=== PATIENT | female | born 1930 | race Caucasian/White ===

== ENCOUNTER → 2018-09-06 | Outpatient (CLI) | payer MEDICARE, BC ==
[2018-09-06 12:36] LABS: Anisocytosis Slight; Basophils % (A) 1 %; Eosinophils # (A) 0.1 k/uL (0-0.7); Eosinophils % (A) 2 %; HCT 34.4 % (34.0-46.0); HGB 10.6 gm/dL (11.4-16.0); Hypochromasia Moderate; Lymphocytes # (A) 1.1 k/uL (1.0-4.8); Lymphocytes % (A) 38 %; MCH 29.7 pg (25.0-35.0); MCHC 30.8 g/dL (31.0-37.0); MCV 96.5 fL (80.0-100.0); Mean Platelet Volume 8.6; Monocytes # (A) 0.2 k/uL (0-1.0); Monocytes % (A) 6 %; Neutrophils # (A) 1.5 k/uL (1.3-7.7); Neutrophils % (A) 51 %; Platelet Count 159 k/uL (150-450); RBC 3.56 m/uL (3.80-5.40); RDW 16.4 % (11.5-15.5)
[2018-09-06 13:07] LABS: Appearance,Urine Clear (Clear); Bilirubin,Urine Negative (Negative); Blood,Urine Negative (Negative); Color,Urine Yellow; Glucose,Urine (UA) Negative (Negative); Ketones,Urine Negative (Negative); Leukocyte Esterase,Urine Trace (Negative); Nitrite,Urine Negative (Negative); PH, Urine 8.5 (5.0-8.0); Protein,Urine Trace (Negative); RBC,Urine 1 /hpf (0-5); Specific Gravity,Urine 1.017 (1.001-1.035); Squamous Epithelial Cell,Urine 2 /hpf (0-4); Urobilinogen,Urine <2.0 mg/dL (<2.0); WBC,Urine 3 /hpf (0-5)
[2018-09-06 16:41] LABS: Albumin 3.8 g/dL (3.80-4.90); Albumin/Globulin Ratio 1.81 (1.60-3.17); Anion Gap 5.2 mmol/L (4.00-12.00); Calcium 8.3 mg/dL (8.7-10.3); Carbon Dioxide 31.8 mmol/L (21.6-31.8); Globulin 2.1 g/dL (1.6-3.3); Potassium 5.3 mmol/L (3.5-5.5); Total Bilirubin 0.4 mg/dL (0.2-1.2); Total Protein 5.9 g/dL (6.2-8.2)
== END | disposition home or self-care (01) ==
LOC: LABWHC1 10:49
PROVIDERS: ATTEND Family Medicine
DX: R60.9 Edema, unspecified (principal); R30.0 Dysuria
CPT/HCPCS: 36415; 80053; 81001; 83880; 85025

== ENCOUNTER → 2020-01-11 | Outpatient (CLI) | payer MEDICARE, BC ==
[2020-01-11 10:12] LABS: Anisocytosis Moderate; Basophils % (A) 1 %; Eosinophils # (A) 0.1 k/uL (0-0.7); Eosinophils % (A) 4 %; HCT 33.3 % (34.0-46.0); HGB 10.7 gm/dL (11.4-16.0); Hypochromasia Slight; Lymphocytes % (A) 36 %; MCH 31.7 pg (25.0-35.0); MCHC 32.2 g/dL (31.0-37.0); MCV 98.5 fL (80.0-100.0); Macrocytosis Moderate; Mean Platelet Volume 9.3; Monocytes # (A) 0.2 k/uL (0-1.0); Monocytes % (A) 5 %; Neutrophils # (A) 1.4 k/uL (1.3-7.7); Neutrophils % (A) 52 %; Platelet Count 191 k/uL (150-450); RBC 3.38 m/uL (3.80-5.40); RDW 21.8 % (11.5-15.5); WBC 2.7 k/uL (3.8-10.6)
[2020-01-11 17:36] LABS: Hemoglobin A1C 6.2 % (4.0-6.0)
[2020-01-11 18:21] LABS: African American GFR (CKD) 52.3 (60.0-200.0); Albumin/Globulin Ratio 1.9 (1.60-3.17); Anion Gap 7.9 mmol/L (4.00-12.00); BUN/Creat Ratio 34.55 Ratio (12.00-20.00); Calcium 8.9 mg/dL (8.7-10.3); Carbon Dioxide 31.1 mmol/L (21.6-31.8); Chol/HDL Ratio 2.5; Globulin 2.1 g/dL (1.6-3.3); LDL Cholesterol,Calculated 58.2 mg/dL (0.0-131.0); Non-African American GFR(CKD) 45.1 (60.0-200.0); Potassium 3.9 mmol/L (3.5-5.5); Total Bilirubin 0.5 mg/dL (0.2-1.2); Total Protein 6.1 g/dL (6.2-8.2); VLDL Calculation 16.8 mg/dL (5.00-40.00)
== END | disposition home or self-care (01) ==
LOC: LABWHC1 09:07
PROVIDERS: ATTEND Internal Medicine
DX: E78.2 Mixed hyperlipidemia (principal); I10 Essential (primary) hypertension; R73.03 Prediabetes
CPT/HCPCS: 36415; 80053; 80061; 83036; 84443; 85025

== ENCOUNTER 2020-05-29 11:48 | Inpatient (IN) | payer MEDICARE, BC ==
[2020-05-29] MEDS ORDERED: PANTOPRAZOLE 40 MG/10 ML VIAL IVP STA (12:16)
--- NOTE | 2020-05-29 12:19 | ED ---
General Adult HPI - General Chief complaint: GI Bleed Stated complaint: Rectal Bleed Time Seen by Provider: 05/29/20 11:50 Source: patient, RN notes reviewed, old records reviewed Mode of arrival: wheelchair Limitations: no limitations - History of Present Illness Initial comments: 89 yo female presenting for evaluation of rectal bleeding. Patient has had intermittent bright red rectal bleeding for the past several weeks. She is on Pradaxa. She was seen by her primary care physician this morning and sent to the emergency department for evaluation. She is having increased fatigue and dyspnea. She had 2 episodes of bleeding yesterday with 1normal bowel movement in between. She only has blood with bowel movements, no melena reported. No fever or chills. No cough. No chest pain. - Related Data Home Medications Medication Instructions Recorded Confirmed Amiodarone [Cordarone] 100 mg PO DAILY 12/08/13 01/11/15 Aspirin 81 mg PO DAILY 12/08/13 01/11/15 Calcium Carb-Vit D 500Mg-200Un 1 tab PO DAILY 12/08/13 01/11/15 [Oscal 500+D] Cyanocobalamin [Vitamin B-12] 500 mcg PO DAILY 12/08/13 01/11/15 Dabigatran [Pradaxa] 150 mg PO BID 12/08/13 01/11/15 Gabapentin [Neurontin] 300 mg PO TID 12/08/13 01/11/15 Metoprolol Tartrate [Lopressor] 12.5 mg PO DAILY 12/08/13 01/11/15 Multivitamins, Thera [Multivitamin] 1 each PO DAILY 12/08/13 01/11/15 Olmesartan/Amlodipin/Hcthiazid 1 each PO DAILY 12/08/13 01/11/15 [Tribenzor 40-5-12.5 mg Tablet] Omeprazole [PriLOSEC] 20 mg PO AC-BRKFST 12/08/13 01/11/15 Simvastatin [Zocor] 20 mg PO HS 12/08/13 01/11/15 Hydrocodone/Acetaminophen [[place] 2.5 mg PO Q4HR PRN 01/08/14 01/11/15 5-325] Previous Rx's Medication Instructions Recorded Levofloxacin [Levaquin] 750 mg PO DAILY #7 tab 01/11/15 Allergies Allergy/AdvReac Type Severity Reaction Status Date / Time adhesive AdvReac Rash/Hives Verified 01/11/15 15:55 Review of Systems ROS Statement: Those systems with pertinent positive or pertinent negative responses have been documented in the HPI. ROS Other: All systems not noted in ROS Statement are negative. Past Medical History Past Medical History: Atrial Fibrillation, Hyperlipidemia, Hypertension Additional Past Medical History / Comment(s): November PT HAD CARDIOVERSION. NO LONGER IN A-FIB CURRENTLY. ON PRadaxa. History of Any Multi-Drug Resistant Organisms: None Reported Past Surgical History: Breast Surgery, Hysterectomy, Orthopedic Surgery Past Psychological History: No Psychological Hx Reported Smoking Status: Never smoker Past Alcohol Use History: None Reported Past Drug Use History: None Reported General Exam Limitations: no limitations General appearance: alert, in no apparent distress Head exam: Present: atraumatic, normocephalic Eye exam: Present: normal appearance, PERRL ENT exam: Present: normal exam Neck exam: Present: normal inspection. Absent: tenderness, meningismus Respiratory exam: Present: normal lung sounds bilaterally. Absent: respiratory distress, wheezes Cardiovascular Exam: Present: regular rate, irregular rhythm GI/Abdominal exam: Present: soft. Absent: distended, tenderness, guarding, rebound Rectal exam: Present: normal inspection, hemorrhoids (no active bleeding). Absent: black stool, bloody stool Extremities exam: Present: normal inspection, normal capillary refill. Absent: pedal edema Neurological exam: Present: alert, oriented X3, CN II-XII intact. Absent: motor sensory deficit Psychiatric exam: Present: normal affect, normal mood Skin exam: Present: warm, pallor Course Vital Signs 05/29/20 11:56 Temperature 97.6 F Pulse Rate 67 Respiratory 18 Rate Blood Pressure 138/63 O2 Sat by Pulse 97 Oximetry EKG Findings - EKG Comments: EKG Findings:: EKG was atrial fibrillation low voltage, rate is 69, QRS duration 82, QTC 456, no ST segment elevation Medical Decision Making - Medical Decision Making 89-year-old female with 2 weeks of intermittentbright red rectal bleeding. Patient is on Pradaxa with history of atrial fibrillation. Hemodynamically stable at time of presentation, no active bleeding on rectal exam. Hemoglobin is 7, she had a recent on May 08.8. She is transfused one unit of packed RBCs on the emergency department. I discussed case both with Dr. Myles, Dr. Anaya covering for GI, and the admitting physician Dr. Cramer. Pradentonind has been ordered. Patient will be admitted to the ICU. - Lab Data Result diagrams: 05/29/20 12:22 05/29/20 12:22 Lab Results 05/29/20 05/29/20 05/29/20 Range/Units 12:22 12:22 12:22 WBC 3.3 L (3.8-10.6) k/uL RBC 2.02 L (3.80-5.40) m/uL Hgb 7.0 L D (11.4-16.0) gm/dL Hct 22.6 L (34.0-46.0) % MCV 112.1 H (80.0-100.0) fL MCH 34.5 (25.0-35.0) pg MCHC 30.8 L (31.0-37.0) g/dL RDW 15.5 (11.5-15.5) % Plt Count 243 (150-450) k/uL Neutrophils % 49 % Lymphocytes % 41 % Monocytes % 5 % Eosinophils % 2 % Basophils % 1 % Neutrophils # 1.6 (1.3-7.7) k/uL Lymphocytes # 1.4 (1.0-4.8) k/uL Monocytes # 0.2 (0-1.0) k/uL Eosinophils # 0.1 (0-0.7) k/uL Basophils # 0.0 (0-0.2) k/uL Dimorphic RBCs Present Hypochromasia Moderate Poikilocytosis (manual Present Anisocytosis (manual) Present Macrocytosis Marked A PT 10.3 (9.0-12.0) sec INR 1.0 (<1.2) APTT 23.2 (22.0-30.0) sec Sodium 140 (137-145) mmol/L Potassium 4.7 (3.5-5.1) mmol/L Chloride 111 H (98-107) mmol/L Carbon Dioxide 21 L (22-30) mmol/L Anion Gap 8 mmol/L BUN 16 (7-17) mg/dL Creatinine 0.86 (0.52-1.04) mg/dL Est GFR (CKD-EPI)AfAm 70 (>60 ml/min/1.73 sqM) Est GFR (CKD-EPI)NonAf 61 (>60 ml/min/1.73 sqM) Glucose 122 H (74-99) mg/dL Plasma Lactic Acid Lauro (0.7-2.0) mmol/L Calcium 8.8 (8.4-10.2) mg/dL Magnesium 2.0 (1.6-2.3) mg/dL Total Bilirubin 0.5 (0.2-1.3) mg/dL AST 23 (14-36) U/L ALT 17 (4-34) U/L Alkaline Phosphatase 52 (38-126) U/L Ammonia (<30) umol/L Total Protein 6.5 (6.3-8.2) g/dL Albumin 3.8 (3.5-5.0) g/dL Blood Type Blood Type Recheck Bld Type Recheck Status Antibody Screen Crossmatch Spec Expiration Date 05/29/20 05/29/20 Range/Units 12:22 12:27 WBC (3.8-10.6) k/uL RBC (3.80-5.40) m/uL Hgb (11.4-16.0) gm/dL Hct (34.0-46.0) % MCV (80.0-100.0) fL MCH (25.0-35.0) pg MCHC (31.0-37.0) g/dL RDW (11.5-15.5) % Plt Count (150-450) k/uL Neutrophils % % Lymphocytes % % Monocytes % % Eosinophils % % Basophils % % Neutrophils # (1.3-7.7) k/uL Lymphocytes # (1.0-4.8) k/uL Monocytes # (0-1.0) k/uL Eosinophils # (0-0.7) k/uL Basophils # (0-0.2) k/uL Dimorphic RBCs Hypochromasia Poikilocytosis (manual Anisocytosis (manual) Macrocytosis PT (9.0-12.0) sec INR (<1.2) APTT (22.0-30.0) sec Sodium (137-145) mmol/L Potassium (3.5-5.1) mmol/L Chloride (98-107) mmol/L Carbon Dioxide (22-30) mmol/L Anion Gap mmol/L BUN (7-17) mg/dL Creatinine (0.52-1.04) mg/dL Est GFR (CKD-EPI)AfAm (>60 ml/min/1.73 sqM) Est GFR (CKD-EPI)NonAf (>60 ml/min/1.73 sqM) Glucose (74-99) mg/dL Plasma Lactic Acid Lauro 1.9 (0.7-2.0) mmol/L Calcium (8.4-10.2) mg/dL Magnesium (1.6-2.3) mg/dL Total Bilirubin (0.2-1.3) mg/dL AST (14-36) U/L ALT (4-34) U/L Alkaline Phosphatase (38-126) U/L Ammonia <9 (<30) umol/L Total Protein (6.3-8.2) g/dL Albumin (3.5-5.0) g/dL Blood Type A Positive Blood Type Recheck No Previous Record Bld Type Recheck Status CABO Indicated Antibody Screen NEGATIVE Crossmatch See Detail Spec Expiration Date 06/01/2020 - 2321 Critical Care Time Critical Care Time: Yes Total Critical Care Time: 35 Disposition Clinical Impression: Hematochezia Disposition: ADMITTED IP TO THIS [facility] Condition: Serious Is patient prescribed a controlled substance at d/c from ED?: No Referrals: Cristina Cramer MD [Primary Care Provider] - 1-2 days Decision to Admit Reason: Admit from EC Decision Date: 05/29/20 Decision Time: 13:37
[2020-05-29 12:56] LABS: Lactic Acid, Venous 1.9 mmol/L (0.7-2.0)
[2020-05-29 12:57] LABS: Albumin 3.8 g/dL (3.5-5.0); Calcium 8.8 mg/dL (8.4-10.2); Potassium 4.7 mmol/L (3.5-5.1); Total Bilirubin 0.5 mg/dL (0.2-1.3); Total Protein 6.5 g/dL (6.3-8.2)
[2020-05-29 12:59] LABS: Partial Thromboplastin Time 23.2 sec (22.0-30.0); Prothrombin Time 10.3 sec (9.0-12.0)
[2020-05-29 13:03] LABS: Basophils % (A) 1 %; Eosinophils # (A) 0.1 k/uL (0-0.7); Eosinophils % (A) 2 %; HCT 22.6 % (34.0-46.0); Hypochromasia Moderate; Lymphocytes # (A) 1.4 k/uL (1.0-4.8); Lymphocytes % (A) 41 %; MCH 34.5 pg (25.0-35.0); MCHC 30.8 g/dL (31.0-37.0); MCV 112.1 fL (80.0-100.0); Macrocytosis Marked; Mean Platelet Volume 9.4; Monocytes # (A) 0.2 k/uL (0-1.0); Monocytes % (A) 5 %; Neutrophils # (A) 1.6 k/uL (1.3-7.7); Neutrophils % (A) 49 %; Platelet Count 243 k/uL (150-450); RBC 2.02 m/uL (3.80-5.40); RDW 15.5 % (11.5-15.5); WBC 3.3 k/uL (3.8-10.6)
[2020-05-29 13:22] LABS: Anisocytosis (M) Present; Poikilocytosis (M) Present
[2020-05-29 13:23] LABS: Mixed Population RBC Present
[2020-05-29] MEDS ORDERED: NALOXONE 0.4 MG/ML 1 ML VIAL IV PRN (13:34)
[2020-05-29] MEDS: IDARUCIZUMAB 2.5 GM in EMPTY BAG 1 BAG IV SCH ×2 (13:55→14:14)
[2020-05-29] MEDS: SODIUM CHLORIDE 0.9% 1,000 ML IV SCH (15:00)
[2020-05-29 15:25] LABS: Glucose,Whole Blood 100 mg/dL (75-99)
[2020-05-29] MEDS ORDERED: HYDROcodone/APAP 7.5-325MG 1 EACH TAB PO SCH (16:00)
--- NOTE | 2020-05-29 16:17 | CONS ---
CONSULTATION DATE OF DICTATION: 05/29/2020 REASON FOR CONSULTATION: Acute GI bleed. HISTORY OF PRESENT ILLNESS: The patient is an 89-year-old pleasant white female with history of atrial fibrillation, on Pradaxa, who went to see Dr. Cramer on an outpatient basis today. She was not feeling well, having some dizziness and has been having ongoing GI bleed for the last 2 weeks' duration. The patient states that initially it was almost dark in color. Subsequently it became somewhat tarry, and then she started having some maroon- colored stools. She has had this bleeding on and off for the last 2 weeks. Each day she had bowel movements anywhere from one to two a day, and there were days when she did not have any bleeding. The symptoms continued to progressively get worse and today she was sent to the emergency room by Dr. Cramer. Her hemoglobin was noted to be at 7.2 g/dL. She denies any abdominal pain, reports no nausea, vomiting. She has been taking Motrin 1 or 2 tablets daily for the last few months for degenerative joint disease. No prior history of peptic ulcer disease. She recalls her last colonoscopy was more than 5 or 6 years ago. PAST MEDICAL HISTORY: Her past medical history is significant for atrial fibrillation, hypertension, hyperlipidemia, degenerative joint disease. PAST SURGICAL HISTORY: Breast surgery, hysterectomy. HOME MEDICATIONS: Medications at home include Cordarone, aspirin, calcium supplements, vitamin B12, Pradaxa, Neurontin, Lopressor, multivitamin, Tribenzor, Prilosec, Zocor and [place]. ALLERGIES: ADHESIVE TAPE. SOCIAL HISTORY: No smoking. No alcohol use. FAMILY HISTORY: Unremarkable. REVIEW OF SYSTEMS: CARDIOPULMONARY: No chest pain or shortness of breath. GENITOURINARY: No dysuria or hematuria. MUSCULOSKELETAL: Some chronic back pain. NEUROLOGY: Unremarkable. PSYCHIATRY: Unremarkable. ENT/VISION: Unremarkable. HEMATOLOGY: Anemia. ENDOCRINE: Unremarkable. CONSTITUTIONAL: No recent weight loss. No fever, chills, night sweats. PHYSICAL EXAMINATION: She appears comfortable. No apparent distress. Vital signs are stable. Blood pressure is 148/70, pulse rate 73, temperature 98.4. HEENT examination unremarkable. Conjunctivae pink. Sclerae anicteric. Oral cavity no lesions. NECK: No JVD or lymph node enlargement. CHEST: Clear to auscultation. HEART: Regular rate and rhythm. ABDOMEN: Soft. It was non-tender, non-distended. Bowel sounds are positive. No organomegaly. EXTREMITIES: No pedal edema. SKIN: No rashes. NEUROLOGIC: Alert and oriented x3. No focal deficits. LABS: WBC 3.3, hemoglobin 7, platelets 243. MCV is 112. PT and INR within normal limits. BUN and creatinine are normal at 60 and 0.8, respectively. ALT, AST, T-bilirubin, alkaline phosphatase are normal. IMPRESSION: 1. Severe symptomatic anemia and gastrointestinal bleed for the last 2 weeks' duration. Hemoglobin is 7 g/dL. Patient having some dark-colored stools followed by black tarry stools followed by maroon-colored stools for the last 2 weeks' duration. Her hemoglobin 3 weeks ago was 11 g/dL. Patient has been taking Motrin on and off for degenerative joint disease. At this time, possibility of an upper GI source of bleeding versus colonic source of bleeding needs to be considered. The patient has been on Pradaxa for atrial fibrillation, and her last dose was yesterday. Currently not having any active bleeding since being in the ER since morning. Remains hemodynamically stable. 2. History of atrial fibrillation, on Pradaxa, currently on hold. 3. History of hypertension. 4. History of hypothyroidism. RECOMMENDATIONS: 1. Agree with reversal of anticoagulation. 2. Continue to hold Pradaxa. 3. Start her on a clear liquid diet. 4. Protonix 40 mg twice daily. 5. Will proceed with an upper endoscopy tomorrow, and if negative consider colonoscopy during this hospitalization. The plan was discussed with the patient. She is agreeable to it. In the meantime, we will monitor CBC on a frequent basis. Patient currently receiving one unit of PRBC transfusion. Will follow with you closely. Thank you for this consultation. MMODL / IJN: [id number] /
--- NOTE | 2020-05-29 16:32 | P.CNPUL ---
History of Present Illness Consult date: 05/29/20 Chief complaint: GIB History of present illness: This is an 89-year-old here patient presented to the ED with generalized fatigue and weakness. The patient has chronic atrial fibrillation and the patient has been taken further access on long-term anticoagulants. The patient started having some bright red blood per rectum she days back on and off. She has not had any previous colonoscopy and she's been trying to delay the procedures much as possible. Note that she became quite fatigued and tired and lethargic and she came into the hospital and her hemoglobin was at 7.0. Based on her intake of pradaxa, she was reversed with idarucizumab and she was admitted to the intensive care unit and she is currently receiving the first unit of packed RBC and she is also on a normal saline at the rate of 75 mL an hour. She is making adequate urine output. His is hemodynamically stable. The patient does not have any chronic liver disease. Does not take any form of nonsteroidal anti- inflammatory medications. No alcoholism. No peptic ulcer disease. No hematemesis. No epigastric pain. coagulation profile is within normal limits. Review of Systems Constitutional: Reports fatigue, Reports lethargy Eyes: denies as per HPI, denies blurred vision, denies bulging eye, denies decreased vision, denies diplopia, denies discharge, denies dry eye, denies irritation, denies itching, denies pain, denies photophobia, denies loss of peripheral vision, denies loss of vision, denies tunnel vision/blind spots Ears: bilateral: decreased hearing, deny: ear discharge, earache, tinnitus Ears, nose, mouth and throat: Reports as per HPI Breasts: absent: as per HPI, change in shape, gynecomastia, masses, nipple discharge, pain, skin changes, swelling Cardiovascular: Reports decreased exercise tolerance Respiratory: Reports dyspnea Gastrointestinal: Reports BRBPR Genitourinary: Reports as per HPI Menstruation: Reports as per HPI Musculoskeletal: Reports as per HPI Musculoskeletal: absent: ankle pain, ankle stiffness, ankle swelling, as per HPI, elbow pain, elbow stiffness, elbow swelling, foot pain, foot stiffness, foot swelling, hand pain, hand stiffness, hand swelling, hip pain, hip stiffness, hip swelling, knee pain, knee stiffness, knee swelling, shoulder pain, shoulder stiffness, shoulder swelling, wrist pain, wrist stiffness, wrist swelling Integumentary: Reports as per HPI Neurological: Reports as per HPI Psychiatric: Reports as per HPI Endocrine: Reports as per HPI Hematologic/Lymphatic: Reports as per HPI Allergic/Immunologic: Reports as per HPI Past Medical History Past Medical History: Atrial Fibrillation, Hyperlipidemia, Hypertension Additional Past Medical History / Comment(s): Chronic afib, ( Pradaxa). hypothyroid, gout, hyperlipidemia and DM2 History of Any Multi-Drug Resistant Organisms: None Reported Past Surgical History: Breast Surgery, Hysterectomy, Orthopedic Surgery Past Psychological History: No Psychological Hx Reported Smoking Status: Never smoker Past Alcohol Use History: None Reported Past Drug Use History: None Reported Medications and Allergies Home Medications Medication Instructions Recorded Confirmed Type Metoprolol Tartrate [Lopressor] 25 mg PO DAILY 12/08/13 05/29/20 History Allopurinol [Zyloprim] 100 mg PO DAILY 05/29/20 05/29/20 History Dabigatran [Pradaxa] 150 mg PO BID 05/29/20 05/29/20 History HYDROcodone/APAP 7.5-325MG [[place] 1 tab PO TID PRN 05/29/20 05/29/20 History 7.5-325] Lansoprazole 30 mg PO DAILY 05/29/20 05/29/20 History Levothyroxine Sodium [Synthroid] 25 mcg PO DAILY 05/29/20 05/29/20 History Linaclotide [Linzess] 145 mcg PO DAILY 05/29/20 05/29/20 History Magnesium Oxide 400 mg PO DAILY 05/29/20 05/29/20 History Pantoprazole [Protonix] 40 mg PO DAILY 05/29/20 05/29/20 History Rosuvastatin [Crestor] 10 mg PO DAILY 05/29/20 05/29/20 History metFORMIN HCL [Glucophage] 500 mg PO BID 05/29/20 05/29/20 History Allergies Allergy/AdvReac Type Severity Reaction Status Date / Time adhesive AdvReac Rash/Hives Verified 05/29/20 13:46 Physical Exam Vitals: Vital Signs Temp Pulse Resp BP Pulse Ox 05/29/20 15:30 98.2 F 60 23 163/73 96 05/29/20 14:56 66 16 141/68 96 05/29/20 14:29 98.4 F 73 16 148/70 96 05/29/20 14:19 98.0 F 86 16 161/73 96 05/29/20 11:56 97.6 F 67 18 138/63 97 Intake and Output 05/29/20 05/29/20 05/29/20 06:59 14:59 22:59 Intake Total 0 Output Total 0 Balance 0 0 Intake: Blood Product 0 Rc As-1 Unit 0 [id number] Output: Urine 0 Other: Weight 92.079 kg The patient appeared well nourished and normally developed. Vital signs as documented. Head exam is unremarkable. No scleral icterus or corneal arcus noted. Neck is without jugular venous distension, thyromegaly, or carotid bruits. Carotid upstrokes are brisk bilaterally. Lungs are clear to auscultation and percussion. Cardiac exam reveals the PMI to be normally sized and situated. Rhythm is regular. First and second heart sounds normal. No murmurs, rubs or gallops. Abdominal exam reveals normal bowel sounds, no masses, no organomegaly and no aortic enlargement. Extremities are nonedematous and both femoral and pedal pulses are normal.Examination of the skin revealed no evidence of significant rashes, suspicious appearing nevi or other concerning lesions.Neurologically, the patient is awake and alert and the patient does not have any focal neurological deficit. Cranial nerves are essentially intact. Results - Laboratory Findings CBC and BMP: 05/29/20 12:22 05/29/20 12:22 PT/INR, D-dimer PT 10.3 sec (9.0-12.0) 05/29/20 12:22 INR 1.0 (<1.2) 05/29/20 12:22 Abnormal lab findings: Abnormal Labs 05/29/20 05/29/20 05/29/20 12:22 12:22 12:27 WBC 3.3 L RBC 2.02 L Hgb 7.0 L D Hct 22.6 L MCV 112.1 H MCHC 30.8 L Macrocytosis Marked A Chloride 111 H Carbon Dioxide 21 L Glucose 122 H POC Glucose (mg/dL) Crossmatch See Detail 05/29/20 15:23 WBC RBC Hgb Hct MCV MCHC Macrocytosis Chloride Carbon Dioxide Glucose POC Glucose (mg/dL) 100 H Crossmatch Assessment and Plan Plan: 1 acute GI bleed, likely of a lower GI source, consider possibility of a diverticular bleed. The patient was taken Pradaxa on outpatient basis which exacerbated her bleeding further. She presents to the ED with a hemoglobin of 7. She is hemodynamic is stable 2 blood loss anemia with hemoglobin of 7, currently on IV fluids and receiving packed RBC transfusion 3 chronic atrial fibrillation rate controlled on Pradaxa 4 hypertension 5 diabetes mellitus type 2 maintained on metformin 6 hypothyroidism 7 hyperlipidemia 8 osteoarthritis Plan give a total of 2 units of packed RBC IV fluids at the rate of 75 an hour The patient's Pradaxa was reversed with blaine Mcdaniel consultation for EGD and colonoscopy Keep nothing by mouth for now Hold anticoagulation IV Protonix compression devices to lower extremities We'll continue to follow
[2020-05-29] MEDS: PANTOPRAZOLE 40 MG/10 ML VIAL IVP SCH (21:13)
[2020-05-29] MEDS: HYDROcodone/APAP 7.5-325MG 1 EACH TAB PO PRN (21:31)
[2020-05-29 22:42] LABS: Anisocytosis Slight; Basophils % (A) 1 %; Eosinophils # (A) 0.1 k/uL (0-0.7); Eosinophils % (A) 2 %; HCT 24.5 % (34.0-46.0); HGB 7.8 gm/dL (11.4-16.0); Hypochromasia Moderate; Lymphocytes # (A) 0.9 k/uL (1.0-4.8); Lymphocytes % (A) 34 %; MCH 33.3 pg (25.0-35.0); MCHC 31.9 g/dL (31.0-37.0); Macrocytosis Marked; Mean Platelet Volume 9.4; Monocytes # (A) 0.2 k/uL (0-1.0); Monocytes % (A) 8 %; Neutrophils # (A) 1.5 k/uL (1.3-7.7); Neutrophils % (A) 53 %; Platelet Count 167 k/uL (150-450); Poikilocytosis Slight; RBC 2.35 m/uL (3.80-5.40); RDW 19.8 % (11.5-15.5); WBC 2.8 k/uL (3.8-10.6)
[2020-05-29 22:47] LABS: MCV 104.4 fL (80.0-100.0)
[2020-05-30] MEDS: SODIUM CHLORIDE 0.9% 1,000 ML IV SCH ×2 (05:11→17:04)
[2020-05-30] MEDS: HYDROcodone/APAP 7.5-325MG 1 EACH TAB PO PRN (06:24)
[2020-05-30] MEDS: LEVOTHYROXINE 25 MCG TAB PO SCH (06:25)
[2020-05-30 07:45] LABS: Anisocytosis Slight; HCT 24.1 % (34.0-46.0); HGB 7.7 gm/dL (11.4-16.0); Hypochromasia Moderate; MCH 33.4 pg (25.0-35.0); MCHC 31.9 g/dL (31.0-37.0); Macrocytosis Marked; Mean Platelet Volume 9.1; Platelet Count 159 k/uL (150-450); Poikilocytosis Slight; RDW 19.8 % (11.5-15.5); WBC 2.7 k/uL (3.8-10.6)
[2020-05-30 07:56] LABS: MCV 104.8 fL (80.0-100.0)
[2020-05-30 07:57] LABS: Calcium 7.8 mg/dL (8.4-10.2); Potassium 4.4 mmol/L (3.5-5.1)
[2020-05-30] MEDS: MAGNESIUM OXIDE 400 MG TAB PO SCH (08:58)
[2020-05-30] MEDS: ATORVASTATIN 20 MG TAB PO SCH (08:58)
[2020-05-30] MEDS: METOPROLOL TARTRATE 25 MG TAB PO SCH (08:58)
[2020-05-30] MEDS: PATIENT'S OWN (Linaclotide [Linzess] 145 MCG Capsule) PO SCH (08:58)
[2020-05-30] MEDS: allopurinoL 100 MG TAB PO SCH (08:58)
[2020-05-30] MEDS ORDERED: PANTOPRAZOLE 40 MG TABLET PO SCH (09:00)
[2020-05-30] MEDS: PANTOPRAZOLE 40 MG/10 ML VIAL IVP SCH ×2 (09:00→21:58)
[2020-05-30 12:07] LABS: Glucose,Whole Blood 97 mg/dL (75-99)
--- NOTE | 2020-05-30 13:44 | P.PN ---
Subjective Progress Note Date: 05/30/20 05/30/2020, the patient is doing well without any specific issues or complaints. Hemoglobin stable at 7.7. The patient did not show any further signs of GI bleed. The patient is having any nausea vomiting or abdominal pain. Feeling weak. Her cardiac rhythm is still in atrial fibrillation. The plan is to proceed with a EGD and possible colonoscopy today. No altered mentation. She is resting comfortably in bed. She is off anticoagulation for now. No angina. No palpitations. Objective - Vital Signs Vital signs: Vital Signs Temp 97.6 F 05/30/20 12:00 Pulse 58 L 05/30/20 13:00 Resp 22 05/30/20 13:00 BP 146/70 05/30/20 13:00 Pulse Ox 95 05/30/20 13:00 Intake & Output 05/29/20 05/30/20 05/30/20 18:59 06:59 18:59 Intake Total 535 1210 525 Output Total 0 456 602 Balance 535 754 -77 Weight 92.079 kg 95.7 kg Intake: IV 225 900 525 Sodium Chloride 0.9% 1, 225 900 525 000 ml @ 75 mls/hr IV . [id number] [facility] Rx#:[id number] Blood Product 310 310 Rc As-1 Unit 0 310 [id number] Rc As-1 Unit 310 [id number] Output: Urine 0 450 600 Stool 6 2 Other: Voiding Method Bedside Commode # Voids 1 1 0 - Exam The patient appeared well nourished and normally developed. Vital signs as documented. Head exam is unremarkable. No scleral icterus or corneal arcus noted . Neck is without jugular venous distension, thyromegaly, or carotid bruits. Carotid upstrokes are brisk bilaterally. Lungs are clear to auscultation and percussion. Cardiac exam reveals the PMI to be normally sized and situated. Rhythm is regular. First and second heart sounds normal. No murmurs, rubs or gallops. Abdominal exam reveals normal bowel sounds, no masses, no organomegaly and no aortic enlargement. Extremities are nonedematous and both femoral and pedal pulses are normal.Examination of the skin revealed no evidence of significant rashes, suspicious appearing nevi or other concerning lesions.Neurologically, the patient is awake and alert and the patient does not have any focal neurological deficit. Cranial nerves are essentially intact. - Labs CBC & Chem 7: 05/30/20 07:30 05/30/20 07:30 Labs: Abnormal Lab Results - Last 24 Hours (Table) 05/29/20 05/29/20 05/29/20 Range/Units 12:27 15:23 22:00 WBC 2.8 L (3.8-10.6) k/uL RBC 2.35 L (3.80-5.40) m/uL Hgb 7.8 L (11.4-16.0) gm/dL Hct 24.5 L (34.0-46.0) % MCV 104.4 H D (80.0-100.0) fL RDW 19.8 H (11.5-15.5) % Lymphocytes # 0.9 L (1.0-4.8) k/uL Macrocytosis Marked A Chloride (98-107) mmol/L Glucose (74-99) mg/dL POC Glucose (mg/dL) 100 H (75-99) mg/dL Calcium (8.4-10.2) mg/dL Crossmatch See Detail 05/30/20 05/30/20 Range/Units 07:30 07:30 WBC 2.7 L (3.8-10.6) k/uL RBC 2.30 L (3.80-5.40) m/uL Hgb 7.7 L (11.4-16.0) gm/dL Hct 24.1 L (34.0-46.0) % MCV 104.8 H (80.0-100.0) fL RDW 19.8 H (11.5-15.5) % Lymphocytes # (1.0-4.8) k/uL Macrocytosis Marked A Chloride 113 H (98-107) mmol/L Glucose 106 H (74-99) mg/dL POC Glucose (mg/dL) (75-99) mg/dL Calcium 7.8 L (8.4-10.2) mg/dL Crossmatch Assessment and Plan Plan: 1 acute GI bleed, likely of a lower GI source, consider possibility of a diverticular bleed. The patient was taken Pradaxa on outpatient basis which exacerbated her bleeding further. She presents to the ED with a hemoglobin of 7. She is hemodynamic is stable. The patient got transfused with a total of 2 units of packed RBC. Follow-up hemoglobin from today is at 7.7 and the patient not showing any signs of GI bleeding. 2 blood loss anemia 3 chronic atrial fibrillation, rate controlled and the patient was taken off anticoagulants for now. 4 hypertension 5 diabetes mellitus type 2 maintained on metformin 6 hypothyroidism 7 hyperlipidemia 8 osteoarthritis Plan A total of 2 units of packed RBC was given the patient's hemoglobin is at 7.7 IV fluids at the rate of 75 an hour The patient's Pradaxa was reversed with praxbind, and the patient is not showing any signs of GI bleeding GI consultation for EGD and colonoscopy Keep nothing by mouth for now IV Protonix compression devices to lower extremities We'll continue to follow
[2020-05-30] MEDS ORDERED: PROPOFOL 10 MG/ML 20 ML VIAL IV ONE (14:41)
[2020-05-30] MEDS ORDERED: LIDOCAINE 1% INJ 10MG/ML (20 ML MDV) ONE (14:41)
[2020-05-30] MEDS ORDERED: IV FLUID CONTINUATION 300 ML IV ONE (14:45)
--- NOTE | 2020-05-30 14:57 | P.PCN ---
Date of Procedure: 05/30/20 Procedure(s) Performed: BRIEF HISTORY: Patient is a 89-year-old, pleasant, white female admitted hospital with acute GI bleed. She is been having dark stools followed by maroon colored stools for the last 3 weeks' duration. She has A. fib and has been on Pradaxa which is currently on hold. Hemoglobin was 7 g/dL at the time of admission and received 2 units of PRBC transition. Last hemoglobin was 7.7 g/dL. She is scheduled for an upper endoscopy to rule out acute upper GI source of bleeding. PROCEDURE PERFORMED: Esophagogastroduodenoscopy. PREOPERATIVE DIAGNOSIS: Acute GI bleed. IV sedation per anesthesia. PROCEDURE: After informed consent was obtained, the patient was brought into the endoscopy unit. IV sedation was administered by Anesthesia under continuous monitoring. Initially the Olympus GIF-140 video endoscope was inserted into the mouth. Esophagus intubated without any difficulty. It was gradually advanced into the stomach and duodenum and carefully examined. The bulb and the second part of the duodenum appeared normal. The scope at this time was withdrawn to the stomach, adequately insufflated with air, and upon careful examination, mucosa of the antrum, body, cardia and the fundus appeared normal. The scope was then withdrawn into the esophagus. The GE junction was located at 39 cm from the incisors. The esophagus appeared normal. There were no erosions or ulcerations seen and the patient tolerated the procedure well. IMPRESSION: 1. No evidence of upper GI bleed. 2. Normal-appearing esophagus stomach and duodenum. RECOMMENDATIONS: The findings of this examination were discussed with the patient as well as her family. Monitor CBC daily. Will discuss with family regarding further workup including a colonoscopy .. In the meantime she'll be started on a clear liquid diet.
[2020-05-30] MEDS ORDERED: PEG 3350-NA SULF,BICARB,CL/KCL 4,000 ML BOTTLE PO ONE (15:19)
[2020-05-30 20:52] LABS: Anisocytosis Slight; Basophils % (A) 1 %; Eosinophils # (A) 0.1 k/uL (0-0.7); Eosinophils % (A) 3 %; HCT 25.6 % (34.0-46.0); HGB 8.3 gm/dL (11.4-16.0); Hypochromasia Moderate; Lymphocytes % (A) 29 %; MCH 33.9 pg (25.0-35.0); MCHC 32.5 g/dL (31.0-37.0); MCV 104.3 fL (80.0-100.0); Mean Platelet Volume 9.1; Monocytes # (A) 0.4 k/uL (0-1.0); Monocytes % (A) 11 %; Neutrophils # (A) 1.9 k/uL (1.3-7.7); Neutrophils % (A) 55 %; Platelet Count 186 k/uL (150-450); Poikilocytosis Slight; RBC 2.46 m/uL (3.80-5.40); RDW 19.6 % (11.5-15.5); WBC 3.4 k/uL (3.8-10.6)
[2020-05-30 20:54] LABS: Macrocytosis Marked
[2020-05-31 04:45] LABS: Anisocytosis Slight; HCT 23.3 % (34.0-46.0); HGB 7.4 gm/dL (11.4-16.0); Hypochromasia Moderate; MCH 33.1 pg (25.0-35.0); MCHC 31.6 g/dL (31.0-37.0); MCV 104.9 fL (80.0-100.0); Mean Platelet Volume 9.1; Platelet Count 170 k/uL (150-450); Poikilocytosis Slight; RBC 2.22 m/uL (3.80-5.40); RDW 19.2 % (11.5-15.5)
[2020-05-31 05:04] LABS: Macrocytosis Marked
[2020-05-31] MEDS: HYDROcodone/APAP 7.5-325MG 1 EACH TAB PO PRN ×2 (05:39→20:08)
[2020-05-31] MEDS: SODIUM CHLORIDE 0.9% 1,000 ML IV SCH ×2 (05:57→20:14)
[2020-05-31] MEDS: LEVOTHYROXINE 25 MCG TAB PO SCH (08:14)
[2020-05-31] MEDS ORDERED: FUROSEMIDE 10 MG/ML 2 ML VIAL IV PRN (08:42)
[2020-05-31] MEDS ORDERED: PROPOFOL 10 MG/ML 20 ML VIAL IV ONE (12:45)
[2020-05-31] MEDS ORDERED: IV FLUID CONTINUATION 800 ML IV ONE (12:46)
--- NOTE | 2020-05-31 13:14 | P.PCN ---
Date of Procedure: 05/31/20 Procedure(s) Performed: BRIEF HISTORY: Patient is a 89-year-old pleasant male admitted hospital with acute GI bleed. She is having that polyp/maroon-colored stools for the last duration. She underwent an upper endoscopy as stated that was unremarkable. She is hence scheduled for colonoscopy to evaluate further. PROCEDURE PERFORMED: Colonoscopy snare polypectomy . PREOPERATIVE DIAGNOSIS: Acute GI bleed. IV sedation per Anesthesia. PROCEDURE: After informed consent was obtained, the patient, was brought into the endoscopy unit. IV sedation was administered by Anesthesia under continuous monitoring. Digital rectal examination was normal. Initially the Olympus CF-160 flexible video colonoscope was then inserted in the rectum, gradually advanced into the cecum without any difficulty. Careful examination was performed as the scope was gradually being withdrawn. Ileocecal valve and the appendiceal orifice were visualized and appeared normal. Prep was excellent. Mucosa of the cecum, ascending colon appeared normal. In the hepatic flexure there was a 1 cm polyp removed by snare polypectomy. In the transverse colon there was a 5 mm polyp removed by snare polypectomy. In the descending colon there was a 5 mm and 3 mm polyps removed by snare polypectomy. Moderate left-sided diverticulosis seen. Rest of the transverse colon, descending colon, sigmoid colon, and rectum appeared normal. Retroflexion was performed in the rectum and weight 2 internal hemorrhoids were seen. The patient tolerated the procedure well. IMPRESSION: 1 cm hepatic flexure polyp status post polypectomy 5 mm transverse colon polyp status post polypectomy 3 mm and 5 mm descending colon polyp status post polypectomy Moderate left-sided diverticulosis Grade 2 internal hemorrhoids RECOMMENDATIONS: Findings of this examination were discussed with the patient as well as her family. She was advised to follow with the biopsy results. Recent episodes of bleeding was likely diverticular/bleeding from internal hemorrhoids..Diet will be advanced as tolerated. Monitor CBC daily. Resume gradually she if indicated.
--- NOTE | 2020-05-31 13:26 | P.PN ---
Subjective Progress Note Date: 05/31/20 05/31/2020, the patient is stable in the intensive care unit. Hemoglobin stable. EGD was negative. Colonoscopy was also done today and the patient was found to have a 1 cm hepatic flexure polyp for which polypectomy was done. Another 5 mm transverse colonic polyp with polypectomy was done and the patient another 3 mm and 5 mm ascending colon polyp with a polypectomy was done. The patient had moderate left-sided diverticulosis and along with grade 2 internal hemorrhoids. Patient is doing well. No specific complaints. She feels a bit fatigued. Primary care physician is transferring this patient with another unit of packed RBC. Cardiac rhythm remains atrial fibrillation. Hemodynamically st able. Objective - Vital Signs Vital signs: Vital Signs Temp 98.3 F 05/31/20 12:00 Pulse 66 05/31/20 12:00 Resp 28 H 05/31/20 12:00 BP 162/83 05/31/20 12:00 Pulse Ox 93 L 05/31/20 12:00 Intake & Output 05/30/20 05/31/20 05/31/20 18:59 06:59 18:59 Intake Total 1175 4075 1345 Output Total 1702 200 300 Balance -527 3875 1045 Weight 93.4 kg Intake: IV 1175 825 575 Sodium Chloride 0.9% 1, 975 825 375 000 ml @ 75 mls/hr IV . [id number] [facility] Rx#:[id number] Oral 3250 0 Blood Product 460 Rc As-1 Unit 310 [id number] Other 310 Rc As-1 Unit 310 [id number] Output: Urine 900 200 300 Stool 802 Other: Voiding Method Bedside Commode Bedside Commode # Voids 0 1 # Bowel Movements 0 0 - Exam The patient appeared well nourished and normally developed. Vital signs as documented. Head exam is unremarkable. No scleral icterus or corneal arcus noted. Neck is without jugular venous distension, thyromegaly, or carotid bruits. Carotid upstrokes are brisk bilaterally. Lungs are clear to auscultation and percussion. Cardiac exam reveals the PMI to be normally sized and situated. Rhythm is regular. First and second heart sounds normal. No murmurs, rubs or gallops. Abdominal exam reveals normal bowel sounds, no masses, no organomegaly and no aortic enlargement. Extremities are nonedematous and both femoral and pedal pulses are normal.Examination of the skin revealed no evidence of significant rashes, suspicious appearing nevi or other concerning le sions.Neurologically, the patient is awake and alert and the patient does not have any focal neurological deficit. Cranial nerves are essentially intact. - Labs CBC & Chem 7: 05/31/20 04:20 05/30/20 07:30 Labs: Abnormal Lab Results - Last 24 Hours (Table) 05/29/20 05/30/20 05/31/20 Range/Units 12:27 20:19 04:20 WBC 3.4 L 3.0 L (3.8-10.6) k/uL RBC 2.46 L 2.22 L (3.80-5.40) m/uL Hgb 8.3 L 7.4 L (11.4-16.0) gm/dL Hct 25.6 L 23.3 L (34.0-46.0) % MCV 104.3 H 104.9 H (80.0-100.0) fL RDW 19.6 H 19.2 H (11.5-15.5) % Macrocytosis Marked A Marked A Crossmatch See Detail Assessment and Plan Plan: 1 acute GI bleed, likely of a lower GI source, consider possibility of a diverticular bleed. The patient was taken Pradaxa on outpatient basis which exacerbated her bleeding further. She presents to the ED with a hemoglobin of 7. She is hemodynamic is stable. The patient got transfused with a total of 2 units of packed RBC. A third units will be given today for a hemoglobin of 7.4. The patient underwent colonoscopy and was found to have multiple colonic polyps less than 1 cm and polypectomy was done and the patient had moderately severe diverticulosis involving the left colon. No active signs of bleeding and hemoglobin stable at 7.4. The EGD was negative for any upper GI source of bleeding. 2 blood loss anemia , stable 3 chronic atrial fibrillation, rate controlled and the patient was taken off anticoagulants for now. 4 hypertension 5 diabetes mellitus type 2 maintained on metformin 6 hypothyroidism 7 hyperlipidemia 8 osteoarthritis Plan Monitor the hemoglobin. No signs of any acute bleeding. The patient is post colonoscopy. IV fluids at the rate of 75 an hour and this can be gradually weaned off once the patient's his advanced on diet. The patient's Pradaxa was reversed with praxbind, and the patient is not showing any signs of GI bleeding and EGD and colonoscopy has been done Advance diet gradually and station. Started off with clear liquid diet. Continue Protonix compression devices to lower extremities Chance for this patient out of the intensive care units We'll continue to follow
--- NOTE | 2020-05-31 14:44 | P.HPIM ---
History of Present Illness H&P Date: 05/30/20 Chief Complaint: GI bleed This is an 89 year old female with previous medical history significant for hypertension and hypertensive cardiovascular disease, hyperlipi demia, and chronic atrial fibrillation, diabetes mellitus type 2, hypothyroidism, has been on Pradaxa for many years without any issues, developed to have increased bright red blood per rectum over the past 3 weeks, and recently was very heavy to the degree that she filled up the toilet, she came to my office and she was pretty pale with significant weakness, and she was sent to the ER at [facility] for evaluation and she was found to have a hemoglobin of 7 and she did receive 2 units of PRBCs and she was admitted to the ICU with GI and Critical care consults, she was hemodynamically stable not requiring any pressors, patient was started o IVF along with blood transfusion and she was scheduled to have EGD and colonoscopy in the next 24 hours. Review of Systems Constitutional: Reports chronic pain, Reports fatigue, Reports malaise, Reports weakness, Reports weight loss, Denies anorexia Eyes: denies blurred vision, denies bulging eye, denies decreased vision Ears: bilateral: decreased hearing Ears, nose, mouth and throat: Denies dysphagia, Denies neck lump, Denies sore throat Cardiovascular: Reports decreased exercise tolerance, Reports dyspnea on exertion, Reports leg edema, Reports shortness of breath, Denies chest pain, Denies lightheadedness, Denies rapid heart beat, Denies syncope Respiratory: Denies congestion, Denies cough, Denies cough with sputum, Denies home oxygen, Denies respiratory infections, Denies sleep apnea, Denies snoring, Denies wheezing Gastrointestinal: Reports BRBPR, Reports change in bowel habits, Reports hematochezia, Reports melena, Reports nausea, Denies abdominal pain, Denies belching, Denies bloating, Denies constipation, Denies diarrhea, Denies d yspepsia, Denies early satiety, Denies excessive gas, Denies heartburn, Denies hematemesis, Denies indigestion, Denies jaundice, Denies lactose intolerance, Denies loss of appetite, Denies vomiting Genitourinary: Denies dysuria, Denies nocturia Menstruation: Reports postmenopausal Musculoskeletal: Reports gait dysfunction, Reports low back pain, Reports morning stiffness, Reports neck pain Musculoskeletal: bilateral: ankle swelling, absent: ankle pain, ankle stiffness, elbow pain, elbow stiffness, elbow swelling, foot pain, foot stiffness, foot swelling, hand pain, hand stiffness, hand swelling, hip pain, hip stiffness, hip swelling, knee pain, knee stiffness, knee swelling, shoulder pain, shoulder stiffness, shoulder swelling, wrist pain, wrist stiffness, wrist swelling Integumentary: Denies pruritus, Denies rash Neurological: Denies numbness, Denies weakness Psychiatric: Reports anxiety, Reports depression, Denies sadness/tearfulness, Denies sleep disturbances, Denies suicidal ideation Endocrine: Reports fatigue, Reports polyuria Past Medical History Past Medical History: Atrial Fibrillation, Heart Failure, Diabetes Mellitus, GERD/Reflux, Hyperlipidemia, Hypertension, Osteoarthritis (OA), Thyroid Disorder Additional Past Medical History / Comment(s): Chronic afib, ( Pradaxa). hypothyroid, gout, hyperlipidemia and DM2 History of Any Multi-Drug Resistant Organisms: None Reported Past Surgical History: Breast Surgery, Hysterectomy, Orthopedic Surgery Past Anesthesia/Blood Transfusion Reactions: No Reported Reaction Past Psychological History: No Psychological Hx Reported Smoking Status: Never smoker Past Alcohol Use History: None Reported Past Drug Use History: None Reported - Past Family History Father Family Medical History: Coronary Artery Disease (CAD) (Father at the age of 78 from heart disease.) Mother Family Medical History: Coronary Artery Disease (CAD), Diabetes Mellitus (Mother at the age of 88 from diabetes , hypertension and CAD.) Brother(s) Family Medical History: Coronary Artery Disease (CAD), Diabetes Mellitus (% brothers one with CAD and one with DM2.) Sister(s) Family Medical History: Cancer (Patient had 6 sisters , 4 two off pancreatic cancer.) Son(s) Family Medical History: No Reported History (2 sons ok.) Daughter(s) Family Medical History: Hyperlipidemia, Hypertension (4 daughetrs one with hypertension and hyperlipidemia) Medications and Allergies Home Medications Medication Instructions Recorded Confirmed Type Metoprolol Tartrate [Lopressor] 25 mg PO DAILY 12/08/13 05/29/20 History Allopurinol [Zyloprim] 100 mg PO DAILY 05/29/20 05/29/20 History Dabigatran [Pradaxa] 150 mg PO BID 05/29/20 05/29/20 History HYDROcodone/APAP 7.5-325MG [[place] 1 tab PO TID PRN 05/29/20 05/29/20 History 7.5-325] Lansoprazole 30 mg PO DAILY 05/29/20 05/29/20 History Levothyroxine Sodium [Synthroid] 25 mcg PO DAILY 05/29/20 05/29/20 History Linaclotide [Linzess] 145 mcg PO DAILY 05/29/20 05/29/20 History Magnesium Oxide 400 mg PO DAILY 05/29/20 05/29/20 History Pantoprazole [Protonix] 40 mg PO DAILY 05/29/20 05/29/20 History Rosuvastatin [Crestor] 10 mg PO DAILY 05/29/20 05/29/20 History metFORMIN HCL [Glucophage] 500 mg PO BID 05/29/20 05/29/20 History Allergies Allergy/AdvReac Type Severity Reaction Status Date / Time adhesive AdvReac Rash/Hives Verified 05/29/20 13:46 Physical Exam Vitals: Vital Signs Temp Pulse Resp BP Pulse Ox 05/30/20 14:00 67 21 159/71 05/30/20 13:00 58 L 22 146/70 95 05/30/20 12:00 97.6 F 57 L 20 146/70 95 05/30/20 11:00 50 L 22 96 05/30/20 10:00 56 L 21 149/81 95 05/30/20 09:00 68 17 127/68 98 05/30/20 08:00 97.6 F 60 22 143/67 94 L 05/30/20 07:00 60 22 137/70 97 05/30/20 06:00 66 27 H 141/70 97 05/30/20 05:00 54 L 24 94 L 05/30/20 04:00 66 23 150/67 95 05/30/20 03:00 55 L 28 H 133/66 95 05/30/20 02:00 56 L 20 120/58 95 05/30/20 01:00 55 L 23 118/70 96 05/30/20 00:11 61 22 97 05/30/20 00:00 61 23 127/61 94 L 05/29/20 23:00 63 22 149/71 91 L 05/29/20 22:00 73 24 156/127 96 05/29/20 21:00 57 L 33 H 160/86 97 05/29/20 20:30 59 L 19 160/86 96 05/29/20 20:00 98.1 F 66 19 159/79 97 05/29/20 19:49 98.1 F 68 24 159/79 98 05/29/20 19:30 78 16 165/91 95 05/29/20 19:00 61 16 149/57 95 05/29/20 18:30 58 L 11 L 137/65 98 05/29/20 18:26 98.7 F 64 18 149/57 99 05/29/20 18:00 66 13 107/67 98 05/29/20 17:56 98.7 F 64 14 137/65 98 05/29/20 17:46 98.7 F 67 16 107/57 99 05/29/20 17:30 70 26 H 158/69 98 05/29/20 17:00 75 27 H 155/70 97 05/29/20 16:30 98.2 F 80 24 144/92 98 05/29/20 16:00 65 13 152/67 98 05/29/20 15:30 98.2 F 60 24 163/73 98 Intake and Output 05/29/20 05/30/20 05/30/20 22:59 06:59 14:59 Intake Total 1145 600 800 Output Total 252 204 702 Balance 893 396 98 Intake: IV 525 600 800 Sodium Chloride 0.9% 1, 525 600 600 000 ml @ 75 mls/hr IV . [id number] [facility] Rx#:[id number] Blood Product 620 As-1 Unit 310 [id number] As-1 Unit 310 [id number] Output: Urine 250 200 700 Stool 2 4 2 Other: Voiding Method Bedside Commode # Voids 1 1 0 Weight 95.7 kg Physical examination: HEENT: head is atraumatic normocephalic pupils were equal round reactive to light and accommodations , extra ocular muscle movement were intact. Neck: supple, no JVP. Chest: decrease breath sounds at the bases with few ronchi no expiratory wheezes, no intercostal retractions. Heart: first heart sound is depressed, scond heart sound is normal irregularly irregular there is SHANTELL 2/6 located at the left sternal borders. Abdomen: soft non tender non distended positive bowel sounds. Extremities: there is + 2 edema no calf tenderness DP +2 bilaterally. Neurologic examination: patient is awake alert and oriented X 3 CN II-XII are grossly intact muscle power 4/5 in bilateral upper and lower extremities, Babinski's are flexor bilaterally. Results CBC & Chem 7: 05/31/20 04:20 05/30/20 07:30 Labs: Abnormal Lab Results - Last 24 Hours (Table) 05/29/20 05/29/20 05/29/20 Range/Units 12:27 15:23 22:00 WBC 2.8 L (3.8-10.6) k/uL RBC 2.35 L (3.80-5.40) m/uL Hgb 7.8 L (11.4-16.0) gm/dL Hct 24.5 L (34.0-46.0) % MCV 104.4 H D (80.0-100.0) fL RDW 19.8 H (11.5-15.5) % Lymphocytes # 0.9 L (1.0-4.8) k/uL Macrocytosis Marked A Chloride (98-107) mmol/L Glucose (74-99) mg/dL POC Glucose (mg/dL) 100 H (75-99) mg/dL Calcium (8.4-10.2) mg/dL Crossmatch See Detail 05/30/20 05/30/20 Range/Units 07:30 07:30 WBC 2.7 L (3.8-10.6) k/uL RBC 2.30 L (3.80-5.40) m/uL Hgb 7.7 L (11.4-16.0) gm/dL Hct 24.1 L (34.0-46.0) % MCV 104.8 H (80.0-100.0) fL RDW 19.8 H (11.5-15.5) % Lymphocytes # (1.0-4.8) k/uL Macrocytosis Marked A Chloride 113 H (98-107) mmol/L Glucose 106 H (74-99) mg/dL POC Glucose (mg/dL) (75-99) mg/dL Calcium 7.8 L (8.4-10.2) mg/dL Crossmatch Thrombosis Risk Factor Assmnt - DVT/VTE Prophylaxis DVT/VTE Prophylaxis: Mechanical Prophylaxis ordered - Choose All That Apply Any of the Below Risk Factors Present?: Yes Each Factor Represents 1 point: Medical pt on bed rest, Obesity (BMI >25) Other Risk Factors: No Other congenital or acquired thrombophilia - If yes, enter type in comment: No Thrombosis Risk Factor Assessment Total Risk Factor Score: 2 Thrombosis Risk Factor Assessment Level: Low Risk Assessment and Plan Assessment: Assessment and plan: 1. Lower GI bleed likely diverticular bleed. we will continue with ICU care, transfuse 2 units of PRBCs and we will hold Pradaxa, patient did receive IIdarucizumab(Praxbind) in the ER to reverse the effect of Pradaxa, and we will continue to monitor CBC very closely and we will transfuse for hemoglobin less than 7., GI consult in place and the patient is currently actively bleeding but so far hemodynamically stable. 2. Acute blood loss anemia. post 2 units of PRBCS, we will continue to monitor. 3. Hypertension and hypertensive cardiovascular disease. we will continue with m etoprolol 25 mg orally daily. 4. Hyperlipidemia. we will continue with Lipitor 20 mg orally daily. 5. Hypothyroidism. we will continue with synthroid 25 mcg orally daily. 6. Diabetes mellitus type 2 . we will discontinue Metformin and we will start SSI. 7. Chronic atrial fibrillation. discontinue Pradaxa and we will continue with Metoprolol 25 mg orally daily. 8. GERD. we will continue with protonix 40 mg IVP bid. 9. DVT prophylaxis. we will continue with knee-high cain hose. 10. Gout. we will continue with Allopurinol 100 mg orally daily. 11. Macrocytosis with leukopenia and thrombocytopenia.we will need to monitor for possible MDS. 12. Full code. 13. Admits to inpatient . estimated length of stay is 2 midnights.
--- NOTE | 2020-05-31 15:26 | P.PN ---
Subjective Progress Note Date: 05/30/20 This is an 89 year old female with previous medical history significant for hypertension and hypertensive cardiovascular disease, hyperlipidemia, and chronic atrial fibrillation, diabetes mellitus type 2, hypothyroidism, has been on Pradaxa for many years without any issues, developed to have increased bright red blood per rectum over the past 3 weeks, and recently was very heavy to the degree that she filled up the toilet, she came to my office and she was pretty pale with significant weakness, and she was sent to the ER at [facility] for evaluation and she was found to have a he moglobin of 7 and she did receive 2 units of PRBCs and she was admitted to the ICU with GI and Critical care consults, she was hemodynamically stable not requiring any pressors, patient was started o IVF along with blood transfusion and she was scheduled to have EGD and colonoscopy in the next 24 hours. 05/30: Patient remains in the intensive care unit. She states she is feeling tired and weak. 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 Patient complains of shortness of breath with minimal activity. No abdominal tenderness. She is scheduled for EGD this afternoon with Dr. Anaya. She is status post 2 units of packed RBCs with hemoglobin today of 7.7. WBC 2.7, platelet count 159. Chloride 113 otherwise electrolytes and renal function within normal limits. Blood sugar 106. Repeat blood work will be ordered for the morning. Patient's discharge plan is to return home. We'll ask for PT evaluation to check safety of returning home. Objective - Vital Signs Vital signs: Vital Signs Temp 97.6 F 05/30/20 12:00 Pulse 57 L 05/30/20 12:00 Resp 20 05/30/20 12:00 BP 146/70 05/30/20 12:00 Pulse Ox 95 05/30/20 12:00 Intake & Output 05/29/20 05/30/20 05/30/20 18:59 06:59 18:59 Intake Total 535 1210 450 Output Total 0 456 602 Balance 535 754 -152 Weight 92.079 kg 95.7 kg Intake: IV 225 900 450 Sodium Chloride 0.9% 1, 225 900 450 000 ml @ 75 mls/hr IV . [id number] [facility] Rx#:[id number] Blood Product 310 310 Rc As-1 Unit 0 310 [id number] As-1 Unit 310 [id number] Output: Urine 0 450 600 Stool 6 2 Other: Voiding Method Bedside Commode # Voids 1 1 0 - Exam Review of Systems Constitutional: Reports chronic pain, Reports fatigue, Reports malaise, Reports weakness, Reports weight loss, Denies anorexia Eyes: denies blurred vision, denies bulging eye, denies decreased vision Ears: bilateral: decreased hearing Ears, nose, mouth and throat: Denies dysphagia, Denies neck lump, Denies sore throat Cardiovascular: Reports decreased exercise tolerance, Reports dyspnea on exertion, Reports leg edema, Reports shortness of breath, Denies chest pain, Denies lightheadedness, Denies rapid heart beat, Denies syncope Respiratory: Denies congestion, Denies cough, Denies cough with sputum, Denies home oxygen, Denies respiratory infections, Denies sleep apnea, Denies snoring, Denies wheezing Gastrointestinal: Reports BRBPR, Reports change in bowel habits, Reports hematochezia, Reports melena, Reports nausea, Denies abdominal pain, Denies belching, Denies bloating, Denies constipation, Denies diarrhea, Denies dyspepsia, Denies early satiety, Denies excessive gas, Denies heartburn, Denies hematemesis, Denies indigestion, Denies jaundice, Denies lactose intolerance, Denies loss of appetite, Denies vomiting Genitourinary: Denies dysuria, Denies nocturia Menstruation: Reports postmenopausal Musculoskeletal: Reports gait dysfunction, Reports low back pain, Reports mo rning stiffness, Reports neck pain Musculoskeletal: bilateral: ankle swelling, absent: ankle pain, ankle stiffness, elbow pain, elbow stiffness, elbow swelling, foot pain, foot stiffness, foot swelling, hand pain, hand stiffness, hand swelling, hip pain, hip stiffness, hip swelling, knee pain, knee stiffness, knee swelling, shoulder pain, shoulder stiffness, shoulder swelling, wrist pain, wrist stiffness, wrist swelling Integumentary: Denies pruritus, Denies rash Neurological: Denies numbness, Denies weakness Psychiatric: Reports anxiety, Reports depression, Denies sadness/tearfulness, Denies sleep disturbances, Denies suicidal ideation Endocrine: Reports fatigue, Reports polyuria Physical examination: HEENT: head is atraumatic normocephalic pupils were equal round reactive to light and accommodations , extra ocular muscle movement were intact. Neck: supple, no JVP. Chest: decrease breath sounds at the bases with few ronchi no expiratory wheezes, no intercostal retractions. Heart: first heart sound is depressed, scond heart sound is normal irregularly i rregular there is SHANTELL 2/6 located at the left sternal borders. Abdomen: soft non tender non distended positive bowel sounds. Extremities: there is + 2 edema no calf tenderness DP +2 bilaterally. Neurologic examination: patient is awake alert and oriented X 3 CN II-XII are grossly intact muscle power 4/5 in bilateral upper and lower extremities, Babinski's are flexor bilaterally. - Labs CBC & Chem 7: 05/31/20 04:20 05/30/20 07:30 Labs: Abnormal Lab Results - Last 24 Hours (Table) 05/29/20 05/29/20 05/29/20 Range/Units 12:22 12:22 12:27 WBC 3.3 L (3.8-10.6) k/uL RBC 2.02 L (3.80-5.40) m/uL Hgb 7.0 L D (11.4-16.0) gm/dL Hct 22.6 L (34.0-46.0) % MCV 112.1 H (80.0-100.0) fL MCHC 30.8 L (31.0-37.0) g/dL RDW (11.5-15.5) % Lymphocytes # (1.0-4.8) k/uL Macrocytosis Marked A Chloride 111 H (98-107) mmol/L Carbon Dioxide 21 L (22-30) mmol/L Glucose 122 H (74-99) mg/dL POC Glucose (mg/dL) (75-99) mg/dL Calcium (8.4-10.2) mg/dL Crossmatch See Detail 05/29/20 05/29/20 05/30/20 Range/Units 15:23 22:00 07:30 WBC 2.8 L 2.7 L (3.8-10.6) k/uL RBC 2.35 L 2.30 L (3.80-5.40) m/uL Hgb 7.8 L 7.7 L (11.4-16.0) gm/dL Hct 24.5 L 24.1 L (34.0-46.0) % MCV 104.4 H D 104.8 H (80.0-100.0) fL MCHC (31.0-37.0) g/dL RDW 19.8 H 19.8 H (11.5-15.5) % Lymphocytes # 0.9 L (1.0-4.8) k/uL Macrocytosis Marked A Marked A Chloride (98-107) mmol/L Carbon Dioxide (22-30) mmol/L Glucose (74-99) mg/dL POC Glucose (mg/dL) 100 H (75-99) mg/dL Calcium (8.4-10.2) mg/dL Crossmatch 05/30/20 Range/Units 07:30 WBC (3.8-10.6) k/uL RBC (3.80-5.40) m/uL Hgb (11.4-16.0) gm/dL Hct (34.0-46.0) % MCV (80.0-100.0) fL MCHC (31.0-37.0) g/dL RDW (11.5-15.5) % Lymphocytes # (1.0-4.8) k/uL Macrocytosis Chloride 113 H (98-107) mmol/L Carbon Dioxide (22-30) mmol/L Glucose 106 H (74-99) mg/dL POC Glucose (mg/dL) (75-99) mg/dL Calcium 7.8 L (8.4-10.2) mg/dL Crossmatch Assessment and Plan Plan: 1. Lower GI bleed likely diverticular bleed. Status post 2 units of PRBCs and we will hold Pradaxa, patient did receive IIdarucizumab(Praxbind) in the ER to reverse the effect of Pradaxa, and we will continue to monitor CBC very closely and we will transfuse for hemoglobin less than 7., GI consult in place and the patient is currently actively bleeding but so far hemodynamically stable. Patient is scheduled for EGD today. 2. Acute blood loss anemia. post 2 units of PRBCS, we will continue to monitor. 3. Hypertension and hypertensive cardiovascular disease. we will continue with metoprolol 25 mg orally daily. 4. Hyperlipidemia. we will continue with Lipitor 20 mg orally daily. 5. Hypothyroidism. we will continue with synthroid 25 mcg orally daily. 6. Diabetes mellitus type 2 . we will discontinue Metformin and we will start SSI. 7. Chronic atrial fibrillation. discontinue Pradaxa and we will continue with Metoprolol 25 mg orally daily. 8. GERD. we will continue with protonix 40 mg IVP bid. 9. DVT prophylaxis. we will continue with knee-high cain hose. 10. Gout. we will continue with Allopurinol 100 mg orally daily. 11. Macrocytosis with leukopenia and thrombocytopenia.we will need to monitor for possible MDS. 12. Full code. Discharge plan: Return home Impression and plan of care have been directed as dictated by the signing physician. Radha Montgomery nurse practitioner acting as scribe for signing physician.
--- NOTE | 2020-05-31 15:30 | P.PN ---
Subjective Progress Note Date: 05/31/20 This is an 89 year old female with previous medical history significant for hypertension and hypertensive cardiovascular disease, hyperlipidemia, and chronic atrial fibrillation, diabetes mellitus type 2, hypothyroidism, has been on Pradaxa for many years without any issues, developed to have increased bright red blood per rectum over the past 3 weeks, and recently was very heavy to the degree that she filled up the toilet, she came to my office and she was pretty pale with significant weakness, and she was sent to the ER at [facility] for evaluation and she was found to have a hem oglobin of 7 and she did receive 2 units of PRBCs and she was admitted to the ICU with GI and Critical care consults, she was hemodynamically stable not requiring any pressors, patient was started o IVF along with blood transfusion and she was scheduled to have EGD and colonoscopy in the next 24 hours. 05/30: Patient remains in the intensive care unit. She states she is feeling tired and weak. 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 Patient complains of shortness of breath with minimal activity. No abdominal tenderness. She is scheduled for EGD this afternoon with Dr. Anaya. She is status post 2 units of packed RBCs with hemoglobin today of 7.7. WBC 2.7, platelet count 159. Chloride 113 otherwise electrolytes and renal function within normal limits. Blood sugar 106. Repeat blood work will be ordered for the morning. Patient's discharge plan is to return home. We'll ask for PT evaluation to check safety of returning home. 05/31: Yesterday, patient underwent EGD with Dr. Anaya which revealed no evidence of upper GI bleed. Normal-appearing esophagus, stomach and duodenum. Recommendations to monitor CBC daily and possible colonoscopy. Patient was thus scheduled for colonoscopy this afternoon. Hemoglobin today is at 7.4, WBC 3.0 and platelet count 170. Last evening, hemoglobin was 8.3. Patient is scheduled for 1 unit of packed RBCs today. Repeat CBC will be ordered for 4 PM today and again in the morning. PT and OT evaluations. Objective - Vital Signs Vital signs: Vital Signs Temp 98 F 05/31/20 00:00 Pulse 57 L 05/31/20 08:00 Resp 23 05/31/20 08:00 BP 157/90 05/31/20 08:00 Pulse Ox 94 L 05/31/20 08:00 Intake & Output 05/30/20 05/31/20 05/31/20 18:59 06:59 18:59 Intake Total 1175 4075 75 Output Total 1702 200 200 Balance -527 3875 -125 Weight 93.4 kg Intake: IV 1175 825 75 Sodium Chloride 0.9% 1, 975 825 75 000 ml @ 75 mls/hr IV . [id number] [facility] Rx#:[id number] Oral 3250 0 Output: Urine 900 200 200 Stool 802 Other: Voiding Method Bedside Commode Bedside Commode # Voids 0 1 # Bowel Movements 0 0 - Exam Review of Systems Constitutional: Reports chronic pain, Reports fatigue, Reports malaise, Reports weakness, Reports weight loss, Denies anorexia Eyes: denies blurred vision, denies bulging eye, denies decreased vision Ears, nose, mouth and throat: Denies dysphagia, Denies neck lump, Denies sore throat Cardiovascular: Reports decreased exercise tolerance, Reports dyspnea on exertion, Reports leg edema, Reports shortness of breath, Denies chest pain, Denies lightheadedness, Denies rapid heart beat, Denies syncope Respiratory: Denies congestion, Denies cough, Denies cough with sputum, Denies home oxygen, Denies respiratory infections, Denies sleep apnea, Denies snoring, Denies wheezing Gastrointestinal: Reports BRBPR, Reports change in bowel habits, Reports hematochezia, Reports melena, Reports nausea, Denies abdominal pain, Denies belching, Denies bloating, Denies constipation, Denies diarrhea, Denies dyspepsia, Denies early satiety, Denies excessive gas, Denies heartburn, Denies hematemesis, Denies indigestion, Denies jaundice, Denies lactose intolerance, Denies loss of appetite, Denies vomiting Genitourinary: Denies dysuria, Denies nocturia Menstruation: Reports postmenopausal Musculoskeletal: Reports gait dysfunction, Reports low back pain, Reports morning stiffness, Reports neck pain Musculoskeletal: bilateral: ankle swelling, absent: ankle pain, ankle stiffness, elbow pain, elbow stiffness, elbow swelling, foot pain, foot stiffness, foot swelling, hand pain, hand stiffness, hand swelling, hip pain, hip stiffness, hip swelling, knee pain, knee stiffness, knee swelling, shoulder pain, shoulder stiffness, shoulder swelling, wrist pain, wrist stiffness, wrist swelling Integumentary: Denies pruritus, Denies rash Neurological: Denies numbness, Denies weakness Psychiatric: Reports anxiety, Reports depression, Denies sadness/tearfulness, Denies sleep disturbances, Denies suicidal ideation Endocrine: Reports fatigue, Reports polyuria Physical examination: GEN: This is an 89-year-old female. She is resting in the ICU bed. Family member at bedside. HEENT: head is atraumatic normocephalic pupils were equal round reactive to light and accommodations , extra ocular muscle movement were intact. Neck: supple, no JVP. Chest: decrease breath sounds at the bases with few ronchi no expiratory wheezes, no intercostal retractions. Heart: first heart sound is depressed, scond heart sound is normal irregularly irregular there is SHANTELL 2/6 located at the left sternal borders. Abdomen: soft non tender non distended positive bowel sounds. Extremities: there is + 2 edema no calf tenderness DP +2 bilaterally. Neurologic examination: patient is awake alert and oriented X 3 CN II-XII are g rossly intact muscle power 4/5 in bilateral upper and lower extremities, Babinski's are flexor bilaterally. - Labs CBC & Chem 7: 05/31/20 04:20 05/30/20 07:30 Labs: Abnormal Lab Results - Last 24 Hours (Table) 05/29/20 05/30/20 05/31/20 Range/Units 12:27 20:19 04:20 WBC 3.4 L 3.0 L (3.8-10.6) k/uL RBC 2.46 L 2.22 L (3.80-5.40) m/uL Hgb 8.3 L 7.4 L (11.4-16.0) gm/dL Hct 25.6 L 23.3 L (34.0-46.0) % MCV 104.3 H 104.9 H (80.0-100.0) fL RDW 19.6 H 19.2 H (11.5-15.5) % Macrocytosis Marked A Marked A Crossmatch See Detail Assessment and Plan Plan: 1. Lower GI bleed likely diverticular bleed. Status post 2 units of PRBCs and we will hold Pradaxa, patient did receive IIdarucizumab(Praxbind) in the ER to reverse the effect of Pradaxa, and we will continue to monitor CBC very closely and we will transfuse for hemoglobin less than 7., GI consult appreciated. Maintain patient in the intensive care unit. Patient is scheduled for colonoscopy today. 2. Acute blood loss anemia. post 2 units of PRBCS, we will continue to monitor. Scheduled for 1 unit of packed RBCs today. 3. Hypertension and hypertensive cardiovascular disease. we will continue with metoprolol 25 mg orally daily. 4. Hyperlipidemia. we will continue with Lipitor 20 mg orally daily. 5. Hypothyroidism. we will continue with synthroid 25 mcg orally daily. 6. Diabetes mellitus type 2 . we will discontinue Metformin and we will start SSI. 7. Chronic atrial fibrillation. discontinue Pradaxa and we will continue with Metoprolol 25 mg orally daily. 8. GERD. we will continue with protonix 40 mg IVP bid. 9. DVT prophylaxis. we will continue with knee-high cain hose. 10. Gout. we will continue with Allopurinol 100 mg orally daily. 11. Macrocytosis with leukopenia and thrombocytopenia.we will need to monitor for possible MDS. 12. Full code. Discharge plan: Return home. PT and OT evaluations. Impression and plan of care have been directed as dictated by the signing physician. Radha Montgomery nurse practitioner acting as scribe for signing physician.
[2020-05-31 16:20] LABS: Anisocytosis Slight; HCT 26.5 % (34.0-46.0); HGB 8.6 gm/dL (11.4-16.0); Hypochromasia Moderate; MCH 33.2 pg (25.0-35.0); MCHC 32.5 g/dL (31.0-37.0); MCV 102.1 fL (80.0-100.0); Macrocytosis Moderate; Mean Platelet Volume 8.7; Platelet Count 156 k/uL (150-450); Poikilocytosis Slight; RBC 2.59 m/uL (3.80-5.40); RDW 19.6 % (11.5-15.5); WBC 2.8 k/uL (3.8-10.6)
[2020-05-31] MEDS: PATIENT'S OWN (Linaclotide [Linzess] 145 MCG Capsule) PO SCH (16:27)
[2020-05-31] MEDS: MAGNESIUM OXIDE 400 MG TAB PO SCH (16:29)
[2020-05-31] MEDS: METOPROLOL TARTRATE 25 MG TAB PO SCH (16:29)
[2020-05-31] MEDS: ATORVASTATIN 20 MG TAB PO SCH (16:30)
[2020-05-31] MEDS: allopurinoL 100 MG TAB PO SCH (16:30)
[2020-05-31] MEDS: PANTOPRAZOLE 40 MG/10 ML VIAL IVP SCH ×2 (16:30→20:08)
[2020-06-01 04:39] LABS: Anisocytosis Moderate; HCT 27.1 % (34.0-46.0); HGB 8.3 gm/dL (11.4-16.0); Hypochromasia Moderate; MCH 31.3 pg (25.0-35.0); MCHC 30.7 g/dL (31.0-37.0); Macrocytosis Marked; Mean Platelet Volume 9.5; Platelet Count 152 k/uL (150-450); Poikilocytosis Slight; RBC 2.66 m/uL (3.80-5.40); RDW 20.5 % (11.5-15.5); WBC 2.8 k/uL (3.8-10.6)
[2020-06-01 04:57] LABS: MCV 102.1 fL (80.0-100.0)
[2020-06-01] MEDS: HYDROcodone/APAP 7.5-325MG 1 EACH TAB PO PRN (06:27)
[2020-06-01] MEDS: LEVOTHYROXINE 25 MCG TAB PO SCH (06:27)
[2020-06-01] MEDS: METOPROLOL TARTRATE 25 MG TAB PO SCH (08:52)
[2020-06-01] MEDS: MAGNESIUM OXIDE 400 MG TAB PO SCH (08:52)
[2020-06-01] MEDS: ATORVASTATIN 20 MG TAB PO SCH (08:52)
[2020-06-01] MEDS: PANTOPRAZOLE 40 MG/10 ML VIAL IVP SCH (08:52)
[2020-06-01] MEDS: allopurinoL 100 MG TAB PO SCH (08:52)
[2020-06-01] MEDS: PATIENT'S OWN (Linaclotide [Linzess] 145 MCG Capsule) PO SCH (08:53)
[2020-06-01 09:00] VITALS: TEMP 98.1
--- NOTE | 2020-06-01 09:53 | P.PN ---
Subjective Progress Note Date: 06/01/20 This is an 89 year old female with previous medical history significant for hypertension and hypertensive cardiovascular disease, hyperlipidemia, and chronic atrial fibrillation, diabetes mellitus type 2, hypothyroidism, has been on Pradaxa for many years without any issues, developed to have increased bright red blood per rectum over the past 3 weeks, and recently was very heavy to the degree that she filled up the toilet, she came to my office and she was pretty pale with significant weakness, and she was sent to the ER at [facility] for evaluation and she was found to have a hem oglobin of 7 and she did receive 2 units of PRBCs and she was admitted to the ICU with GI and Critical care consults, she was hemodynamically stable not requiring any pressors, patient was started o IVF along with blood transfusion and she was scheduled to have EGD and colonoscopy in the next 24 hours. 05/30: Patient remains in the intensive care unit. She states she is feeling tired and weak. 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 Patient complains of shortness of breath with minimal activity. No abdominal tenderness. She is scheduled for EGD this afternoon with Dr. Anaya. She is status post 2 units of packed RBCs with hemoglobin today of 7.7. WBC 2.7, platelet count 159. Chloride 113 otherwise electrolytes and renal function within normal limits. Blood sugar 106. Repeat blood work will be ordered for the morning. Patient's discharge plan is to return home. We'll ask for PT evaluation to check safety of returning home. 05/31: Yesterday, patient underwent EGD with Dr. Anaya which revealed no evidence of upper GI bleed. Normal-appearing esophagus, stomach and duodenum. Recommendations to monitor CBC daily and possible colonoscopy. Patient was thus scheduled for colonoscopy this afternoon. Hemoglobin today is at 7.4, WBC 3.0 and platelet count 170. Last evening, hemoglobin was 8.3. Patient is scheduled for 1 unit of packed RBCs today. Repeat CBC will be ordered for 4 PM today and again in the morning. PT and OT evaluations. 06/01: Patient is doing a lot better today she underwent colonoscopy yesterday that showed diverticulosis and 3 polyps that were snared, patient is requesting to go home today since her daughter is going to work, her vital signs are stable she is tolerating her diet very well, we'll ask for physical therapy to evaluate the patient and she is able template using the walker she can go home with her family and follow-up with me as an outpatient in 1 week. Objective - Vital Signs Vital signs: Vital Signs Temp 97.7 F 06/01/20 04:00 Pulse 63 06/01/20 07:00 Resp 23 06/01/20 07:00 BP 148/64 06/01/20 07:00 Pulse Ox 96 06/01/20 07:00 Intake & Output 05/31/20 06/01/20 06/01/20 18:59 06:59 18:59 Intake Total 2030 900 75 Output Total 500 600 280 Balance 1530 300 -205 Weight 93.1 kg Intake: IV 1100 900 75 Sodium Chloride 0.9% 1, 900 900 75 000 ml @ 75 mls/hr IV . [id number] [facility] Rx#:[id number] Oral 0 Blood Product 620 Rc As-1 Unit 310 [id number] Other 310 Rc As-1 Unit 310 [id number] Output: Urine 500 600 280 Other: Voiding Method Bedside Commode # Bowel Movements 0 0 - Exam - Exam Review of Systems Constitutional: Reports chronic pain, Reports fatigue, Reports malaise, Reports weakness, Reports weight loss, Denies anorexia Eyes: denies blurred vision, denies bulging eye, denies decreased vision Ears, nose, mouth and throat: Denies dysphagia, Denies neck lump, Denies sore throat Cardiovascular: Reports decreased exercise tolerance, Reports dyspnea on exertion, Reports leg edema, Reports shortness of breath, Denies chest pain, Denies lightheadedness, Denies rapid heart beat, Denies syncope Respiratory: Denies congestion, Denies cough, Denies cough with sputum, Denies home oxygen, Denies respiratory infections, Denies sleep apnea, Denies snoring, Denies wheezing Gastrointestinal: Reports BRBPR, Reports change in bowel habits, Reports hematochezia, Reports melena, Reports nausea, Denies abdominal pain, Denies belching, Denies bloating, Denies constipation, Denies diarrhea, Denies dyspepsia, Denies early satiety, Denies excessive gas, Denies heartburn, Denies hematemesis, Denies indigestion, Denies jaundice, Denies lactose intolerance, Denies loss of appetite, Denies vomiting Genitourinary: Denies dysuria, Denies nocturia Menstruation: Reports postmenopausal Musculoskeletal: Reports gait dysfunction, Reports low back pain, Reports morning stiffness, Reports neck pain Musculoskeletal: bilateral: ankle swelling, absent: ankle pain, ankle stiffness, elbow pain, elbow stiffness, elbow swelling, foot pain, foot stiffness, foot swelling, hand pain, hand stiffness, hand swelling, hip pain, hip stiffness, hip swelling, knee pain, knee stiffness, knee swelling, shoulder pain, shoulder stiffness, shoulder swelling, wrist pain, wrist stiffness, wrist swelling Integumentary: Denies pruritus, Denies rash Neurological: Denies numbness, Denies weakness Psychiatric: Reports anxiety, Reports depression, Denies sadness/tearfulness, Denies sleep disturbances, Denies suicidal ideation Endocrine: Reports fatigue, Reports polyuria Physical examination: GEN: This is an 89-year-old female. She is resting in the ICU bed. Family member at bedside. HEENT: head is atraumatic normocephalic pupils were equal round reactive to light and accommodations , extra ocular muscle movement were intact. Neck: supple, no JVP. Chest: decrease breath sounds at the bases with few ronchi no expiratory wheezes, no intercostal retractions. Heart: first heart sound is depressed, scond heart sound is normal irregularly irregular there is SHANTELL 2/6 located at the left sternal borders. Abdomen: soft non tender non distended positive bowel sounds. Extremities: there is + 2 edema no calf tenderness DP +2 bilaterally. Neurologic examination: patient is awake alert and oriented X 3 CN II-XII are grossly intact muscle power 4/5 in bilateral upper and lower extremities, Babinski's are flexor bilaterally. - Labs CBC & Chem 7: 06/01/20 04:23 05/30/20 07:30 Labs: Abnormal Lab Results - Last 24 Hours (Table) 05/29/20 05/31/20 06/01/20 Range/Units 12:27 15:57 04:23 WBC 2.8 L 2.8 L (3.8-10.6) k/uL RBC 2.59 L 2.66 L (3.80-5.40) m/uL Hgb 8.6 L 8.3 L (11.4-16.0) gm/dL Hct 26.5 L 27.1 L (34.0-46.0) % MCV 102.1 H 102.1 H (80.0-100.0) fL MCHC 30.7 L (31.0-37.0) g/dL RDW 19.6 H 20.5 H (11.5-15.5) % Macrocytosis Marked A Crossmatch See Detail Assessment and Plan Assessment: Assessment and plan: 1. Lower GI bleed likely diverticular bleed. we will continue with ICU care, transfuse 2 units of PRBCs and we will hold Pradaxa, patient did receive IIdarucizumab(Praxbind) in the ER to reverse the effect of Pradaxa, and we will continue to monitor CBC very closely and we will transfuse for hemoglobin less than 7., GI consult in place and the patient is currently actively bleeding but so far hemodynamically stable. 2. Acute blood loss anemia. post 2 units of PRBCS, we will continue to monitor. 3. Hypertension and hypertensive cardiovascular disease. we will continue with metoprolol 25 mg orally daily. 4. Hyperlipidemia. we will continue with Lipitor 20 mg orally daily. 5. Hypothyroidism. we will continue with synthroid 25 mcg orally daily. 6. Diabetes mellitus type 2 . we will discontinue Metformin and we will start SSI. 7. Chronic atrial fibrillation. discontinue Pradaxa and we will continue with Metoprolol 25 mg orally daily. 8. GERD. we will continue with protonix 40 mg IVP bid. 9. DVT prophylaxis. we will continue with knee-high cain hose. 10. Gout. we will continue with Allopurinol 100 mg orally daily. 11. Macrocytosis with leukopenia and thrombocytopenia.we will need to monitor for possible MDS. 12. Hemoglobin is stable at this time we will monitor very closely. Keep the patient off Pradaxa. 13. Patient is medically stable to be discharged home she will follow-up with me as an outpatient 1 week.
--- NOTE | 2020-06-01 09:56 | P.DS ---
Providers Date of admission: 05/29/20 13:34 Expected date of discharge: 06/01/20 Attending physician: Cristina Cramer Consults: 05/29/20 13:34 Consult Physician Stat Consulting Provider: Arvind Myles Consult Reason/Comments: GI bleed Do you want consulting provider notified?: Already Contacted Consult Physician Urgent Consulting Provider: Salima Anaya Consult Reason/Comments: GI bleed Do you want consulting provider notified?: Already Contacted Primary care physician: Cristina Cramer Hospital Course: This is an 89 year old female with previous medical history sign ificant for hypertension and hypertensive cardiovascular disease, hyperlipidemia, and chronic atrial fibrillation, diabetes mellitus type 2, hypothyroidism, has been on Pradaxa for many years without any issues, developed to have increased bright red blood per rectum over the past 3 weeks, and recently was very heavy to the degree that she filled up the toilet, she came to my office and she was pretty pale with significant weakness, and she was sent to the ER at [facility] for evaluation and she was found to have a hemoglobin of 7 and she did receive 2 units of PRBCs and she was admitted to the ICU with GI and Critical care consults, she was hemodynamically stable not requiring any pressors, patient was started o IVF along with blood transfusion and she was scheduled to have EGD and colonoscopy in the next 24 hours. 05/30: Patient remains in the intensive care unit. She states she is feeling tired and weak. 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 Patient complains of shortness of breath with minimal activity. No abdominal tenderness. She is scheduled for EGD this afternoon with Dr. Anaya. She is status post 2 units of packed RBCs with hemoglobin today of 7.7. WBC 2.7, platelet count 159. Chloride 113 otherwise electrolytes and renal function within normal limits. Blood sugar 106. Repeat blood work will be ordered for the morning. Patient's discharge plan is to return home. We'll ask for PT evaluation to check safety of returning home. 05/31: Yesterday, patient underwent EGD with Dr. Anaya which revealed no evidence of upper GI bleed. Normal-appearing esophagus, stomach and duodenum. Recommendations to monitor CBC daily and possible colonoscopy. Patient was thus scheduled for colonoscopy this afternoon. Hemoglobin today is at 7.4, WBC 3.0 and platelet count 170. Last evening, hemoglobin was 8.3. Patient is scheduled for 1 unit of packed RBCs today. Repeat CBC will be ordered for 4 PM today and again in the morning. PT and OT evaluations. 06/01: Patient is doing a lot better today she underwent colonoscopy yesterday that showed diverticulosis and 3 polyps that were snared, patient is requesting to go home today since her daughter is going to work, her vital signs are stable she is tolerating her diet very well, we'll ask for physical therapy to evaluate the patient and she is able template using the walker she can go home with her family and follow-up with me as an outpatient in 1 week. Discharge diagnoses: 1. Lower GI bleed likely diverticular bleed. e. 2. Acute blood loss anemia. post 3 units of PRBCS. 3. Hypertension and hypertensive cardiovascular disease. 4. Hyperlipidemia. 5. Hypothyroidism. 6. Diabetes mellitus type 2 . 7. Chronic atrial fibrillation. 8. GERD. 9. DVT prophylaxis. 10. Gout. 11. Macrocytosis with leukopenia and thrombocytopeni Patient Condition at Discharge: Fair Plan - Discharge Summary Discharge Rx Participant: Yes New Discharge Prescriptions: No Action Metoprolol Tartrate [Lopressor] 25 mg PO DAILY Rosuvastatin [Crestor] 10 mg PO DAILY Levothyroxine Sodium [Synthroid] 25 mcg PO DAILY Dabigatran [Pradaxa] 150 mg PO BID metFORMIN HCL [Glucophage] 500 mg PO BID Pantoprazole [Protonix] 40 mg PO DAILY Linaclotide [Linzess] 145 mcg PO DAILY Lansoprazole 30 mg PO DAILY HYDROcodone/APAP 7.5-325MG [[place] 7.5-325] 1 tab PO TID PRN PRN Reason: Pain Allopurinol [Zyloprim] 100 mg PO DAILY Magnesium Oxide 400 mg PO DAILY Discharge Medication List Metoprolol Tartrate [Lopressor] 25 mg PO DAILY 12/08/13 [History] Allopurinol [Zyloprim] 100 mg PO DAILY 05/29/20 [History] Dabigatran [Pradaxa] 150 mg PO BID 05/29/20 [History] HYDROcodone/APAP 7.5-325MG [[place] 7.5-325] 1 tab PO TID PRN 05/29/20 [History] Lansoprazole 30 mg PO DAILY 05/29/20 [History] Levothyroxine Sodium [Synthroid] 25 mcg PO DAILY 05/29/20 [History] Linaclotide [Linzess] 145 mcg PO DAILY 05/29/20 [History] Magnesium Oxide 400 mg PO DAILY 05/29/20 [History] Pantoprazole [Protonix] 40 mg PO DAILY 05/29/20 [History] Rosuvastatin [Crestor] 10 mg PO DAILY 05/29/20 [History] metFORMIN HCL [Glucophage] 500 mg PO BID 05/29/20 [History] Follow up Appointment(s)/Referral(s): Cristina Cramer MD [Primary Care Provider] - 1-2 days
--- NOTE | 2020-06-01 11:43 | PN ---
PROGRESS NOTE DATE OF SERVICE: 06/01/2020 The patient is an 89-year-old pleasant white female admitted to the hospital with acute GI bleed. She had multiple episodes of dark-colored stools and bright red stool for the last 2 weeks duration. She was on Pradaxa, which is on hold. She underwent an upper endoscopy 2 days ago that was unremarkable. Yesterday she underwent a colonoscopy that showed grade 2 internal hemorrhoids, diverticulosis and 4 small colon polyps that were removed. No active bleeding noted. The patient has been off the Pradaxa for 3 days. She denies any symptoms. No abdominal pain. No nausea, no vomiting. Had brown stool last night. PHYSICAL EXAMINATION: Appears comfortable. VITAL SIGNS: Stable. Blood pressure is 148/64, pulse rate 63, temperature 98. HEENT: Examination unremarkable. Conjunctivae are pink. Sclerae anicteric. Oral cavity no lesions. NECK: No JVD or lymph node enlargement. CHEST: Clear auscultation. HEART: Regular rate and rhythm. ABDOMEN: Soft. Bowel sounds are positive. No organomegaly. EXTREMITIES: No pedal edema. SKIN: No rashes. NEUROLOGIC: Alert and oriented x3. No focal deficits. LABS: WBC 2.8, hemoglobin 8.3, platelets 152. IMPRESSION: 1. Acute gastrointestinal bleed possibly bleeding from internal hemorrhoids or a diverticular bleed which has spontaneously resolved since she has been off the Pradaxa for 3 days. She is status post EGD and colonoscopy as mentioned above. She has no further bleeding. Hemoglobin stable at 8.3. She is status post 3 units of PRBC transfusion so far. 2. History of atrial fibrillation on Pradaxa, currently on hold. 3. Hypothyroidism. 4. Diabetes mellitus and hypertension. RECOMMENDATIONS: 1. Advance to regular diet. 2. Monitor CBC daily. 3. Anticoagulation can be resumed if still indicated. 4. She can be transferred to the floor. 5. We will follow with you closely. MMODL / IJN: [id number] /
--- NOTE | 2020-06-01 12:43 | P.PN ---
Subjective Progress Note Date: 06/01/20 06/01/2020, the patient is doing well. Colonoscopy in EGD was done. The results were discussed earlier. The patient is hemodynamically stable. No further bouts of bleeding. No nausea. No vomiting. No diarrhea. No abdominal pain. The patient is chest shows a total of 3 units of packed RBC and the patient will be able to go home today. No change in her medication and seems that the patient is obtain clearance to restart back to further. The patient is on long-term and to coagulation regarding chronic atrial fibrillation. Objective - Vital Signs Vital signs: Vital Signs Temp 98.1 F 06/01/20 08:00 Pulse 58 L 06/01/20 11:00 Resp 18 06/01/20 11:00 BP 152/73 06/01/20 11:00 Pulse Ox 96 06/01/20 11:00 Intake & Output 05/31/20 06/01/20 06/01/20 18:59 06:59 18:59 Intake Total 2030 900 540 Output Total 500 600 280 Balance 1530 300 260 Weight 93.1 kg Intake: IV 1100 900 300 Sodium Chloride 0.9% 1, 900 900 300 000 ml @ 75 mls/hr IV . [id number] [facility] Rx#:[id number] Oral 0 240 Blood Product 620 Rc As-1 Unit 310 [id number] Other 310 Rc As-1 Unit 310 [id number] Output: Urine 500 600 280 Other: Voiding Method Bedside Commode Bedside Commode # Voids 1 # Bowel Movements 0 0 - Exam The patient appeared well nourished and normally developed. Vital signs as documented. Head exam is unremarkable. No scleral icterus or corneal arcus noted. Neck is without jugular venous distension, thyromegaly, or carotid bruits. Carotid upstrokes are brisk bilaterally. Lungs are clear to auscultation and percussion. Cardiac exam reveals the PMI to be normally sized and situated. Rhythm is regular. First and second heart sounds normal. No murmurs, rubs or gallops. Abdominal exam reveals normal bowel sounds, no masses, no organomegaly and no aortic enlargement. Extremities are nonedematous and both femoral and pedal pulses are normal.Examination of the skin revealed no evidence of significant rashes, suspicious appearing nevi or other concerning le sions.Neurologically, the patient is awake and alert and the patient does not have any focal neurological deficit. Cranial nerves are essentially intact. - Labs CBC & Chem 7: 06/01/20 04:23 05/30/20 07:30 Labs: Abnormal Lab Results - Last 24 Hours (Table) 05/29/20 05/31/20 06/01/20 Range/Units 12:27 15:57 04:23 WBC 2.8 L 2.8 L (3.8-10.6) k/uL RBC 2.59 L 2.66 L (3.80-5.40) m/uL Hgb 8.6 L 8.3 L (11.4-16.0) gm/dL Hct 26.5 L 27.1 L (34.0-46.0) % MCV 102.1 H 102.1 H (80.0-100.0) fL MCHC 30.7 L (31.0-37.0) g/dL RDW 19.6 H 20.5 H (11.5-15.5) % Macrocytosis Marked A Crossmatch See Detail Assessment and Plan Plan: 1 acute GI bleed, likely of a lower GI source, consider possibility of a diverticular bleed. Hemoglobin stable at 8.3. EGD and colonoscopy was done. There was some colonic polyps that were removed and the patient is being followed up on outpatient basis and she is clear for discharge from the critical care standpoint. 2 blood loss anemia , stable 3 chronic atrial fibrillation, rate controlled and the patient was taken off anticoagulants for now. 4 hypertension 5 diabetes mellitus type 2 maintained on metformin 6 hypothyroidism 7 hyperlipidemia 8 osteoarthritis Plan The patient will discharge today May obtain a clearance by GI to resume anticoagulation Monitor hemoglobin and follow-up on outpatient basis. No active critical issues on this patient at this point in time.
[2020-06-01 13:03] VITALS: BP 126/74; PULSE 65; RESP 23
== END 2020-06-01 13:54 | disposition home or self-care (01) | DRG 378 ==
LOC: EC 11:48 → 2SICU 13:34
PROVIDERS: ADMIT Internal Medicine; ATTEND Internal Medicine
PROC: 30233N1 Transfusion of Nonautologous Red Blood Cells into Peripheral Vein, Percutaneous Approach (ICD-10-PCS; 2020-05-29)
PROC: 0DJ08ZZ Inspection of Upper Intestinal Tract, Via Natural or Artificial Opening Endoscopic (ICD-10-PCS; 2020-05-30)
PROC: 05HF33Z Insertion of Infusion Device into Left Cephalic Vein, Percutaneous Approach (ICD-10-PCS; 2020-05-31)
PROC: 0DBM8ZX Excision of Descending Colon, Via Natural or Artificial Opening Endoscopic, Diagnostic (ICD-10-PCS; principal; 2020-05-31 07:30)
PROC: 0DBL8ZX Excision of Transverse Colon, Via Natural or Artificial Opening Endoscopic, Diagnostic (ICD-10-PCS; principal; 2020-05-31 07:30)
DX: K57.31 Diverticulosis of large intestine without perforation or abscess with bleeding (principal); D62 Acute posthemorrhagic anemia; I48.20 Chronic atrial fibrillation, unspecified; D69.6 Thrombocytopenia, unspecified; I11.0 Hypertensive heart disease with heart failure; I50.9 Heart failure, unspecified; E11.9 Type 2 diabetes mellitus without complications; D72.819 Decreased white blood cell count, unspecified; E78.5 Hyperlipidemia, unspecified; E03.9 Hypothyroidism, unspecified; K21.9 Gastro-esophageal reflux disease without esophagitis; K64.1 Second degree hemorrhoids; K63.5 Polyp of colon; D75.89 Other specified diseases of blood and blood-forming organs; M10.9 Gout, unspecified; G89.29 Other chronic pain; M19.90 Unspecified osteoarthritis, unspecified site; E66.9 Obesity, unspecified; Z68.35 Body mass index [BMI] 35.0-35.9, adult; Z79.890 Hormone replacement therapy; Z79.84 Long term (current) use of oral hypoglycemic drugs; Z79.01 Long term (current) use of anticoagulants; Z79.899 Other long term (current) drug therapy; Z90.710 Acquired absence of both cervix and uterus; Z87.2 Personal history of diseases of the skin and subcutaneous tissue; Z87.42 Personal history of other diseases of the female genital tract; Z87.39 Personal history of other diseases of the musculoskeletal system and connective tissue; Z98.890 Other specified postprocedural states; Z91.048 Other nonmedicinal substance allergy status; Z82.49 Family history of ischemic heart disease and other diseases of the circulatory system; Z83.3 Family history of diabetes mellitus; Z80.0 Family history of malignant neoplasm of digestive organs; Z83.49 Family history of other endocrine, nutritional and metabolic diseases
CPT/HCPCS: 36410; 36415; 36430; 43235; 45385; 76937; 80048; 80053; 82140; 83605; 83735; 85025; 85027; 85610; 85730; 86850; 86900; 86901; 86920; 88305; 93005; 96374; 99291